=== PATIENT | male | born 1955 | race Caucasian/White ===

== ENCOUNTER 2016-07-26 18:12 | Emergency (ER) | payer OTHER ==
[~2016-07-26] VITALS: Ht 182.9 cm; Wt 80.7 kg
[~2016-07-26 18:12] MED LIST: ASPIR LOW81 MG PO; DAILY MULTIPLE1 TAB PO; GOOD SENSE IBU200 MG PO; NORVASC 5MG TAB5 MG PO; PRIMATENE 12.51 TAB PO
[2016-07-26] MEDS ORDERED: ASPIRIN EC325 M2 PO (20:12)
--- NOTE | 2016-07-26 20:12 | ED HEADACHE COMPLAINT ---
History of Present Illness General Chief Complaint: Dizziness Stated Complaint: DIZZINES,HIGH BP 230/170,GARVEY Source: patient, family, old records Exam Limitations: no limitations Vital Signs & Intake/Output Vital Signs & Intake/Output Vital Signs Date Time Temp Pulse Resp B/P Pulse O2 O2 Flow FiO2 Ox Delivery Rate 07/27 2111 98.3 64 18 178/96 94 Room Air 07/26 2028 100.6 92 20 190/101 07/26 2028 100.6 92 20 190/101 07/27 2019 96 07/26 191 Room Air 07/26 1909 190/101 07/26 183 100.6 92 20 222/123 91 Room Air Allergies Coded Allergies: Penicillins (Intermediate, HIVES 07/26/16) Sulfa (Sulfonamide Antibiotics) (Intermediate, FACIAL SWELLING 07/26/16) codeine (Intermediate, HIVES 07/26/16) Uncoded Allergies: BLUE CHEESE (Intermediate, HIVES 07/26/16) Reconcile Medications Amlodipine Besylate (Norvasc) 5 MG TABLET 1 TAB PO DAILY HTN Aspirin (Ecotrin*) 325 MG TABLET.DR 1 TAB PO DAILY HEART/BLOOD (Reported) Lisinopril 20 MG TABLET 1 TAB PO DAILY HTN Multivitamin (Multi-Day Vitamins) 1 EACH TABLET 1 TAB PO DAILY SUPPLEMENT ( Reported) Triage Note: TRIAGE: PT TO ER WITH C/C DIZZINESS, PAIN TO BACK OF NECK, BLURRED VISION EARLIER. REPORTS CHECKED HIS B/P BECAUSE OF S/S AND IT WAS 230/117 AT HOME. STATES NOW ONLY HAS S/S OF "A LITTLE BIT OF DIZZINESS". AUTO B/P 223/123, MANUAL 190/120 AT AT TRIAGE. Triage Nurses Notes Reviewed? yes HPI: 60-year-old male with history of hypertension and high cholesterol asthma, has not taken any blood pressure medication in 2-3 months to loss of insurance. He presents today with feeling mildly dizzy and headache. 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 Symptoms are mild to moderate, there is slightly better now than they were previously earlier in the day. He has no visual changes, no chest pain, NO abdominal pain or back pain, no visual changes no word finding problems. He has asthma and has mild wheezing and shortness of breath today. No cough or congestion (THEE LOPEZ,ARPAN) Past History Travel History Traveled to [place] past 21 day No Medical History Any Pertinent Medical History? 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 No (ARPAN PINK) Review of Systems Review of Systems Constitutional: Reports: see HPI. Eyes: Reports: no symptoms. Ears, Nose, Throat, Mouth: Reports: no symptoms. Respiratory: Reports: see HPI. Cardiovascular: Reports: no symptoms. Gastrointestinal/Abdominal: Reports: no symptoms. Genitourinary: Reports: no symptoms. Musculoskeletal: Reports: no symptoms. Skin: Reports: no symptoms. Neurological/Psychological: Reports: see HPI. Hematologic/Endocrine: Reports: no symptoms. Endocrine: Reports: no symptoms. Immunologic/Allergic: Reports: no symptoms. All Other Systems: Reviewed and Negative (ARPAN PINK) Physical Exam Physical Exam Cranial Nerves: normal hearing, normal speech, PERRL Comments: Well-developed well-nourished person in no acute distress HEENT: Normal EENT exam, extraocular motion intact, no nystagmus. Pupils equally round and reactive to light. Nose is atraumatic. Pharynx normal. No swelling or edema. Neck: Supple, no lymphadenopathy, normal range of motion without pain or tenderness Back: Nontender, no CVA tenderness. Full range of motion Cardiovascular: Regular rate and rhythms no murmurs, normal JVP Respiratory: Chest nontender. No respiratory distress. Mild wheezing and decreased breath sounds noted bilaterally. Abdomen: Soft, nontender nondistended, no appreciable organomegaly. Normal bowel sounds. No ascites Extremity: No edema, no calf tenderness to palpation, normal and equal pulses. Neuro: Alert oriented x3, motor sensory normal, cranial nerves II through XII grossly intact. Skin: No appreciable rash on exposed skin, skin is warm and dry. Psych: Mood and affect is normal, memory and judgment is normal. Core Measures Severe Sepsis Present: No Septic Shock Present: No (ARPAN PINK) Progress Differential Diagnosis: carotid dissection, cav sinus thromb, cluster GARVEY, encephalitis, IC mass/tumor, intracranial Hem., meningitis, migraine GARVEY, musculoskeletal pain, post LP headache, sinusitis, SSS thrombosis, subarach. Hem., tension GARVEY, temporal arteritis, TMJ syndrome, viral cephalgia Plan of Care: Orders Procedure Date/time Status TROPONIN LEVEL 07/26 1936 Complete MAGNESIUM 07/26 1936 Complete COMPREHENSIVE METABOLIC PANEL 07/26 1936 Complete CBC WITHOUT DIFFERENTIAL 07/26 1936 Complete EKG 07/26 1936 Active Laboratory Tests 07/26/161954: Anion Gap 6, Estimated GFR > 60, BUN/Creatinine Ratio 18.8, Glucose 129 H, Calcium 9.4, Magnesium 1.6, Total Bilirubin 0.4, AST 19, ALT 25, Alkaline Phosphatase 48, Troponin I 0.04, Total Protein 6.1 L, Albumin 3.5, Globulin 2.6 , Albumin/Globulin Ratio 1.3, CBC w Diff NO MAN DIFF REQ, RBC 4.20 L, MCV 97.1 H, MCH 32.6 H, RDW 13.9, MPV 9.4, Gran % 69.2, Lymphocytes % 20.2 L, Monocytes % 9.1, Eosinophils % 1.2, Basophils % 0.3, Absolute Granulocytes 6.5, Absolute Lymphocytes 1.9, Absolute Monocytes 0.9 H, Absolute Eosinophils 0.1, Absolute Basophils 0, PUBS MCHC 33.5 Initial ED EKG: NSR, rate (77), nonspecific ST T wave chg Prior EKG: unchanged Rhythm Strip: normal sinus rhythm Comments: DuoNeb treatment given. The patient treated with Norvasc 5 mg and lisinopril 20 mg which he believes was his previous medications. He was reevaluated and his lung sound much more clear, he is feeling better in regards to his asthma. His headache has resolved as well. His blood pressure has come down slightly. His laboratory values are unremarkable, no creatinine elevation. Patient was counseled to the risks of untreated hypertension including ID and stroke. He was advised follow-up with primary care doctor within one month (ARPAN PINK) Departure Departure Disposition: HOME OR SELF CARE Condition: Stable Clinical Impression Primary Impression: Hypertensive urgency Secondary Impressions: Asthma exacerbation Referrals: [facility] ASHLEY SHAFFER,RICHI (PCP/Family) Additional Instructions: Take medication as directed for your blood pressure. Follow up with your primary care doctor for recheck within the next month Departure Forms: Customer Survey General Discharge Information Prescriptions: Current Visit Scripts Lisinopril 1 TAB PO DAILY #30 TAB Amlodipine Besylate (Norvasc) 1 TAB PO DAILY #30 TAB (ARPAN PINK) PA/DRYWALL PROFESSIONAL Co-Sign Statement Statement: ED Attending supervision documentation- x I saw and evaluated the patient. I have also reviewed all the pertinent lab results and diagnostic results. I agree with the findings and the plan of care as documented in the PA's/DRYWALL PROFESSIONAL's documentation. [] I have reviewed the ED Record and agree with the PA's/DRYWALL PROFESSIONAL's documentation. [] Additions or exceptions (if any) to the PAs/DRYWALL PROFESSIONAL's note and plan are summarized below: [] (ELIZABETH SHAFFER,YOSELIN)
[2016-07-26] MEDS ORDERED: MULTI-DAY VITA1 EACH PO (20:13)
[2016-07-26 20:19] LABS: ABSOLUTE BASOPHIL COUNT 0 /CUMM (0.0-0.2); ABSOLUTE EOSINOPHIL COUNT 0.1 /CUMM (0.0-0.7); ABSOLUTE GRANULOCYTE CT 6.5 /CUMM (1.4-6.5); ABSOLUTE LYMPH COUNT 1.9 /CUMM (1.2-3.4); ABSOLUTE MONOCYTE COUNT 0.9 /CUMM (0.10-0.60); BASOPHIL % 0.3 % (0.0-2.0); EOSINOPHIL % 1.2 % (0-5); GRANULOCYTE % 69.2 % (42.2-75.2); HEMATOCRIT 40.8 % (42-52); MEAN CORPUSCULAR HGB 32.6 PG (27.0-31.0); MEAN CORPUSCULAR HGB CONC 33.5 G/DL (33.0-37.0); MEAN CORPUSCULAR VOLUME 97.1 FL (80.0-94.0); MEAN PLATELET VOLUME 9.4 FL (7.4-10.4); PLATELET COUNT 200 /CUMM (130-400); RBC DISTRIBUTION WIDTH 13.9 % (11.5-14.5); WHITE BLOOD CELL COUNT 9.4 /CUMM (4.8-10.8)
[2016-07-26] MEDS ORDERED: LISINOPRIL20 M1 PO (21:07)
[2016-07-26] MEDS ORDERED: NORVASC5 M1 PO (21:07)
[2016-07-26 21:12] VITALS: BP 178/96
== END 2016-07-26 21:26 ==
LOC: ERH 18:12
PROVIDERS: Physician Assistant Surgical
DX: I10 Essential (primary) hypertension (principal)
CPT/HCPCS: 1263; 93005; 93010

== ENCOUNTER 2017-09-26 17:18 | Inpatient (IN) | payer OTHER ==
[~2017-09-26] VITALS: Ht 182.9 cm; Wt 91.2 kg
[~2017-09-26 17:18] MED LIST changes: +ASPIRIN EC325 M2 PO; +LISINOPRIL20 M1 PO; +MULTI-DAY VITA1 EACH PO; +NORVASC5 M1 PO
--- NOTE | 2017-09-26 18:04 | ED DYSPNEA/ASTHMA COMPLAINT ---
History of Present Illness General Chief Complaint: Lower Extremity Problems Stated Complaint: LOWER LEG SWELLING Source: patient Exam Limitations: no limitations Vital Signs & Intake/Output Vital Signs & Intake/Output Vital Signs Date Time Temp Pulse Resp B/P B/P Pulse O2 O2 Flow FiO2 Mean Ox Delivery Rate 10/02 1600 Nasal 4.0L Cannula 10/02 1423 97.8 87 20 122/78 95 Nasal 4.0L Cannula 10/02 1423 94 Nasal 4.0L Cannula 10/02 0927 94 Nasal 4.0L Cannula 10/02 0838 93 Nasal 4.0L Cannula 10/02 0812 158/86 10/02 0702 98.0 89 20 166/100 95 Nasal 4.0L Cannula 10/02 0302 90 170/110 10/02 0225 170/110 10/02 0000 Nasal 5.0L Cannula 10/01 2316 97.8 87 20 150/104 97 Nasal 4.0L Cannula 10/01 2152 97 Nasal 4.0L Cannula ED Intake and Output 10/02 0000 10/01 1200 Intake Total 1465 380 Output Total 4075 2400 Balance -2610 -2020 Intake, IV 25 Intake, Oral 1440 380 Output, Urine 4075 2400 Patient 207 lb Weight Allergies Coded Allergies: Penicillins (Intermediate, HIVES 07/26/16) Sulfa (Sulfonamide Antibiotics) (Intermediate, FACIAL SWELLING 07/26/16) codeine (Intermediate, HIVES 07/26/16) Reconcile Medications Amlodipine Besylate (Norvasc) 5 MG TABLET 1 TAB PO DAILY HTN Aspirin (Ecotrin*) 325 MG TABLET.DR 1 TAB PO DAILY HEART/BLOOD (Reported) Lisinopril 20 MG TABLET 1 TAB PO DAILY HTN Multivitamin (Multi-Day Vitamins) 1 EACH TABLET 1 TAB PO DAILY SUPPLEMENT ( Reported) Triage Note: PT TO ED WITH WORSENING BLE EDEMA, DYSPNEA ON EXERTION. WHEEZES AT TRIAGE. 02 SAT 86% RA. Triage Nurses Notes Reviewed? yes Onset: Abrupt Duration: day(s):, constant Timing: recent history Severity: moderate, severe HPI: 62-year-old male comes into the emergency room for further evaluation of shortness of breath and leg swelling. Patient is a former smoker. He does not go to the doctor's. He has not been on any medication in quite a long time. He comes in due to increased swelling in his legs. Denies any fever chills vomiting chest pain. (Scot Strauss) Past History Travel History Traveled to [place] past 21 day No Medical History Any Pertinent Medical History? see below for history Neurological: NONE EENT: NONE Cardiovascular: hypertension Respiratory: asthma Gastrointestinal: NONE Hepatic: NONE Renal: NONE Musculoskeletal: L LEG FX BULGING DISKS PROTRUDING DISKS DETERIORATING DISKS Psychiatric: STRESS Endocrine: NONE Blood Disorders: NONE Cancer(s): NONE FOREPART ROUNDER/Reproductive: NONE Surgical History Surgical History: non-contributory Psychosocial History What is your primary language Polish Tobacco Use: Quit >30 days ago Family History Hx Contributory? No (Scot Strauss) Review of Systems Review of Systems Constitutional: Reports: no symptoms. EENTM: Reports: no symptoms. Respiratory: Reports: see HPI. Cardiovascular: Reports: no symptoms. GI: Reports: no symptoms. Genitourinary: Reports: no symptoms. Musculoskeletal: Reports: see HPI. Skin: Reports: no symptoms. Neurological/Psychological: Reports: no symptoms. Hematologic/Endocrine: Reports: no symptoms. Immunologic/Allergic: Reports: no symptoms. All Other Systems: Reviewed and Negative (Scot Strauss) Physical Exam Physical Exam General Appearance: well developed/nourished, alert, awake Head: atraumatic Eyes: Bilateral: normal appearance, EOMI. Ears, Nose, Throat: normal ENT inspection, hearing grossly normal Neck: normal inspection Respiratory: no respiratory distress, decreased breath sounds, rhonchi, wheezing Cardiovascular: regular rate/rhythm Gastrointestinal: soft Extremities: pedal edema Neurologic/Psych: awake, alert, oriented x 3 Skin: intact, normal color Core Measures ACS in differential dx? Yes CVA/TIA Diagnosis No Sepsis Present: No Sepsis Focused Exam Completed? No (Scot Strauss) Progress Differential Diagnosis: asthma, bronchitis, costochondritis, CHF, COPD, musculoskeletal pain, pericarditis, pulmonary embolism, pneumonia, pneumothorax, unstable angina Plan of Care: Orders Procedure Date/time Status MAGNESIUM 10/03 06 Active BASIC ELECTROLYTES PLUS BUN&CR 10/03 06 Active Anticipated Discharge 10/03 UNK Active PULMONARY FUNCTION TEST (GEN) 10/02 1000 Complete RT RE-EVALUATION 10/02 UNK Complete OXYGEN SETUP (GEN) 10/02 UNK Complete Discontinue Telemetry/Monitor 10/02 UNK Active SOCIAL WORK CONSULT 10/02 UNK Active AEROSOL CHG 10/01 UNK Complete OXYGEN 10/01 UNK Complete OXYGEN DAILY CHARGE 10/01 UNK Complete Current Medications Sig/Rene Start time Last Medication Dose Stop Time Status Admin Lisinopril 40 MG DAILY 10/02 0900 AC 10/02 (Prinivil) 0812 Prednisone 50 MG DAILY 10/02 0900 AC 10/02 0811 Ipratropium Nickerson 2.5 ML TID 10/01 2100 AC 10/02 (Atrovent) 1420 Amlodipine Besylate 10 MG DAILY 10/01 0900 AC 10/02 (Norvasc) 0302 Albuterol Sulfate 3 ML TID 09/29 1400 AC 10/02 (Proventil) 1420 Aspirin 81 MG DAILY 09/27 0900 AC 10/02 (Aspirin) 0812 Enoxaparin Sodium 40 MG DAILY 09/27 0900 AC 10/02 (Lovenox) 0811 Magnesium Oxide 400 MG BID 09/26 2345 AC 10/02 (Mag-Ox) 0811 Atorvastatin Calcium 40 MG 1700 09/26 2200 AC 10/02 (Lipitor) 1706 Acetaminophen 650 MG Q6P PRN 09/26 2145 AC 10/01 (Tylenol) 2219 Acetaminophen 1,000 MG Q6P PRN / 2145 AC (Ofirmev) Guaifenesin 10 ML Q4P PRN 09/26 2145 AC (Robitussin) Diagnostic Imaging: Viewed by Me: Radiology Read, Ultrasound. Discussed w/RAD: Radiology Read, Ultrasound. Radiology Impression: PATIENT: MAI ZUÑIGA PRESENT AGE: 62 PATIENT ACCOUNT NO: [id number] : 54 LOCATION: [facility] ORDERING PHYSICIAN: Lio LOPEZ SERVICE DATE: 09/26/17 EXAM TYPE: RAD - XRY-PORTABLE CHEST XRAY EXAMINATION: XR PORTABLE CHEST CLINICAL INFORMATION: Shortness of breath. COMPARISON: Chest radiograph 10/30/2008 TECHNIQUE: Portable frontal view of the chest was obtained. FINDINGS: There is a small right pleural effusion and bibasilar subsegmental atelectasis. The cardiac silhouette is enlarged and there is hilar vascular engorgement. The left lung is grossly clear. No pneumothorax. Upper mediastinal contours are unremarkable. No acute osseous finding. IMPRESSION: The heart is enlarged and there is hilar vascular engorgement. Small right pleural effusion and right basilar subsegmental atelectasis. The possibility of right basilar consolidation cannot be definitively excluded on the basis of this examination. DICTATED BY: Tyrone Garza MD DATE/TIME DICTATED:09/26/171855 BEAN PICKER MACHINE OPERATOR:[place] DATE /TIME TRANSCRIBED:09/26/171855 CONFIDENTIAL, DO NOT COPY WITHOUT APPROPRIATE AUTHORIZATION. <Electronically signed in Other Vendor System> SIGNED BY: Tyrone Garza MD 09/26/171902, PATIENT: MAI ZUÑIGA PRESENT AGE: 62 PATIENT ACCOUNT NO: [id number] : 54 LOCATION: [facility] ORDERING PHYSICIAN: Lio LOPEZ SERVICE DATE: 09/26/17 EXAM TYPE: US - US-EXT BILAT VENOUS DOPPLER EXAMINATION: US TRIPLEX OF LOWER EXTREMITIES, BILATERAL CLINICAL INFORMATION: Bilateral lower extremity edema and pain. COMPARISON: None TECHNIQUE: Color-flow triplex imaging with spectral analysis and compression Doppler were performed on the bilateral lower extremities. FINDINGS: Respiratory variation, normal compression and augmented flow are noted throughout the lower extremities. The visualized common femoral vein, superficial femoral vein, profunda femoral vein, popliteal vein and tibial peroneal trunk venous segments show no evidence of deep venous thrombosis. There is a left-sided Florian's cyst measuring 3.8 x 5.8 x 2 cm. IMPRESSION: Normal triplex scan without evidence of deep venous thrombosis involving the bilateral lower extremities. Left Florian's cyst. DICTATED BY: Carmelo Spann MD DATE/ TIME DICTATED:09/26/171929 BEAN PICKER MACHINE OPERATOR:[place] DATE/TIME TRANSCRIBED: 09/26/171929 CONFIDENTIAL, DO NOT COPY WITHOUT APPROPRIATE AUTHORIZATION. < Electronically signed in Other Vendor System> SIGNED BY: Carmelo Spann MD 09/26/171937 Initial ED EKG: normal sinus rhythm, rate (100), nonspecific ST T wave chg Comments: 09/26/2017 7:02:19 PM Age-adjusted d-dimer is negative (Scot Strauss) Departure Departure Disposition: STILL A PATIENT Condition: Stable Clinical Impression Primary Impression: Acute CHF (congestive heart failure) Secondary Impressions: COPD (chronic obstructive pulmonary disease), Hypoxia, Troponin level elevated Referrals: Coral Pulido MD (PCP/Family) Departure Forms: Customer Survey General Discharge Information Admission Note Spoke With: Roma Mendez MD Documentation of Exam: Documentation of any treatments & extenuating circumstances including Concerns Regarding Discharge (functional status, medication knowledge or non-compliance, living conditions, etc.) that warrant an admission rather than observation: Patient will require cardiac telemetry. Serial troponins. IV diuresis. IV steroids. BiPAP. Medically not safe for discharge. (Scot Strauss) PA/MANAGER TERMINAL Co-Sign Statement Statement: ED Attending supervision documentation- x I saw and evaluated the patient. I have also reviewed all the pertinent lab results and diagnostic results. I agree with the findings and the plan of care as documented in the PA's/MANAGER TERMINAL's documentation. Peripheral edema, dyspnea; CHF requiring oxygen and IV diuresis [] I have reviewed the ED Record and agree with the PA's/MANAGER TERMINAL's documentation. [] Additions or exceptions (if any) to the PAs/MANAGER TERMINAL's note and plan are summarized below: [] (Ruth SHAFFER,Derek) Critical Care Note Critical Care Note Critical Care Time: 30-74 min (45) (Scot Strauss)
[2017-09-26 18:58] LABS: ABSOLUTE BASOPHIL COUNT 0.1 /CUMM (0.0-0.2); ABSOLUTE EOSINOPHIL COUNT 0.2 /CUMM (0.0-0.7); ABSOLUTE GRANULOCYTE CT 7.1 /CUMM (1.4-6.5); ABSOLUTE LYMPH COUNT 1.1 /CUMM (1.2-3.4); BASOPHIL % 0.9 % (0.0-2.0); EOSINOPHIL % 1.7 % (0-5); GRANULOCYTE % 75.6 % (42.2-75.2); HEMATOCRIT 41.8 % (42-52); MEAN CORPUSCULAR HGB 31.5 PG (27.0-31.0); MEAN CORPUSCULAR HGB CONC 31.8 G/DL (33.0-37.0); MEAN CORPUSCULAR VOLUME 98.9 FL (80.0-94.0); MEAN PLATELET VOLUME 8.9 FL (7.4-10.4); PLATELET COUNT 222 /CUMM (130-400); RBC DISTRIBUTION WIDTH 16.4 % (11.5-14.5); RED BLOOD CELL CT 4.22 /CUMM (4.70-6.10); WHITE BLOOD CELL COUNT 9.4 /CUMM (4.8-10.8)
--- NOTE | 2017-09-26 19:03 | RADIOLOGY REPORT ---
EXAMINATION: XR PORTABLE CHEST CLINICAL INFORMATION: Shortness of breath. COMPARISON: Chest radiograph 10/30/2008 TECHNIQUE: Portable frontal view of the chest was obtained. FINDINGS: There is a small right pleural effusion and bibasilar subsegmental atelectasis. The cardiac silhouette is enlarged and there is hilar vascular engorgement. The left lung is grossly clear. No pneumothorax. Upper mediastinal contours are unremarkable. No acute osseous finding. IMPRESSION: The heart is enlarged and there is hilar vascular engorgement. Small right pleural effusion and right basilar subsegmental atelectasis. The possibility of right basilar consolidation cannot be definitively excluded on the basis of this examination.
--- NOTE | 2017-09-26 19:38 | ULTRASOUND REPORT ---
EXAMINATION: US TRIPLEX OF LOWER EXTREMITIES, BILATERAL CLINICAL INFORMATION: Bilateral lower extremity edema and pain. COMPARISON: None TECHNIQUE: Color-flow triplex imaging with spectral analysis and compression Doppler were performed on the bilateral lower extremities. FINDINGS: Respiratory variation, normal compression and augmented flow are noted throughout the lower extremities. The visualized common femoral vein, superficial femoral vein, profunda femoral vein, popliteal vein and tibial peroneal trunk venous segments show no evidence of deep venous thrombosis. There is a left-sided Florian's cyst measuring 3.8 x 5.8 x 2 cm. IMPRESSION: Normal triplex scan without evidence of deep venous thrombosis involving the bilateral lower extremities. Left Florian's cyst.
--- NOTE | 2017-09-26 21:43 | History & Physical ---
Zain Jimenez MD 09/26/177: General Information and HPI MD Statement: I have seen and personally examined MAI ZUÑIGA and documented this H&P. The patient is a 62 year old M who presented with a patient stated chief complaint of [bilateral lower extremity swelling and shortness of breath]. Source of Information: patient, family, old records Exam Limitations: no limitations History of Present Illness: The patient is a 62-year-old male with past medical history of hypertension, asthma, former smoker with [id number] history who has been noncompliant with medications and medical follow-up due to lack of insurance presenting this admission with chief complaint of shortness of breath and bilateral lower extremity swelling. Patient reports that she stopped taking his medications which included amlodipine 5 mg, aspirin, lisinopril 2-3 years ago after he lost his insurance and has been unable to follow-up with any of his doctors including his primary care physician at [facility]. Patient states that over the past one month he has had shortness of breath and lower extremity swelling. Patient and his son who lives with him reports that over the past one week his shortness of breath has progressively worsened and occurs with both exertion and at rest. Patient endorses that productive cough with greenish phlegm and wheezing. Patient reports orthopnea and paroxysmal nocturnal dyspnea. Patient reports weight gain of approximately 20-25 pounds. Endorses abdominal discomfort and reports increased abdominal girth. Patient denies chest pain, palpitations, chest pressure. Patient denies fever, chills, nausea/vomiting, constipation/diarrhea, urinary symptoms. Patient reports increased daytime somnolence and son reports that he often hears the patient snoring at night. Patient reports that he has been using his son's albuterol inhaler occasionally and has also been taking Primatene tablets and using a nebulizer machine at home for the asthma. Patient denies tobacco use. States that he quit smoking 10 years prior. Previously smoked 1 pack per day for approximately 40 years. Patient reports that he smokes marijuana daily. Patient is exposed to secondhand smoke as his son who lives with him smokes however states that he smokes with his bedroom door closed. 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 In the ED patient was found to be hypoxic in the low to mid 80s and was started on BiPAP. Patient was hypertensive and was given labetalol 10 mg IV 1 along with nitroglycerin 1 g 1. Patient was given a dose of Lasix 40 mg IV, Solu- Medrol 125 mg IV 1 and aspirin 325 mg. Allergies/Medications Allergies: Coded Allergies: Penicillins (Intermediate, HIVES 07/26/16) Sulfa (Sulfonamide Antibiotics) (Intermediate, FACIAL SWELLING 07/26/16) codeine (Intermediate, HIVES 07/26/16) Uncoded Allergies: BLUE CHEESE (Intermediate, HIVES 07/26/16) Home Med list Amlodipine Besylate (Norvasc) 5 MG TABLET 1 TAB PO DAILY HTN Aspirin (Ecotrin*) 325 MG TABLET.DR 1 TAB PO DAILY HEART/BLOOD (Reported) Lisinopril 20 MG TABLET 1 TAB PO DAILY HTN Multivitamin (Multi-Day Vitamins) 1 EACH TABLET 1 TAB PO DAILY SUPPLEMENT ( Reported) Past History Travel History Traveled to [place] past 21 day No Medical History Neurological: NONE EENT: NONE Cardiovascular: hypertension Respiratory: asthma Gastrointestinal: NONE Hepatic: NONE Renal: NONE Musculoskeletal: L LEG FX BULGING DISKS PROTRUDING DISKS DETERIORATING DISKS Psychiatric: STRESS Endocrine: NONE Blood Disorders: NONE Cancer(s): NONE INVESTMENT ANALYST/Reproductive: NONE Isolation History: Standard Surgical History Surgical History: non-contributory Review of Systems Review of Systems Constitutional: Reports: see HPI. EENTM: Reports: no symptoms. Cardiovascular: Reports: see HPI. Respiratory: Reports: see HPI. GI: Reports: see HPI. Genitourinary: Reports: no symptoms. Musculoskeletal: Reports: no symptoms. Skin: Reports: no symptoms. Neurological/Psychological: Reports: no symptoms. Hematologic/Endocrine: Reports: no symptoms. Immunologic/Allergic: Reports: no symptoms. Exam & Diagnostic Data Last 24 Hrs of Vital Signs/I&O Vital Signs Date Time Temp Pulse Resp B/P B/P Pulse O2 O2 Flow FiO2 Mean Ox Delivery Rate 09/27 0000 92 90 09/26 2252 98.2 95 22 174/96 93 09/26 2135 97.8 92 18 160/100 93 Nasal 4.0L Cannula 09/26 2037 92 20 180/104 94 Nasal 4.0L Cannula 09/26 2030 83 96 09/26 2002 90 18 174/108 98 BIPAP 09/26 1937 92 18 184/100 09/26 1917 90 20 184/110 98 BIPAP 09/26 1820 98 09/26 1807 80 09/26 1739 98.4 99 18 169/108 84 Room Air Intake & Output 09/27 0800 09/27 0000 09/26 1600 Intake Total Output Total 1710 Balance -1710 Output, Urine 1710 Patient 235 lb Weight Weight Reported by Patient Measurement Method Physical Exam General Appearance Alert, Oriented X3, Cooperative, No Acute Distress Skin No Rashes Skin Temp/Moisture Exam: Warm/Dry HEENT Atraumatic, PERRLA, EOMI, Mucous Membr. moist/pink Neck mild JVD Cardiovascular Regular Rate, Normal S1, Normal S2 Lungs bilateral crackles and prolonged expiratory wheezing Abdomen Normal Bowel Sounds, Soft, No Tenderness Neurological Normal Speech, Sensation Intact, Cranial Nerves 3-12 NL Extremities No Clubbing, No Cyanosis, Normal Pulses, No Tenderness/Swelling, bilateral lower extremity pitting edema 3+ Vascular Normal Pulses, Pulses Symmetrical Last 24 Hrs of Labs/Ramon: Laboratory Tests 09/27/17 0045: Methadone Screen Pending, Barbiturate Screen Pending, Ur Phencyclidine Scrn Pending, Amphetamines Screen Pending, U Benzodiazepines Scrn Pending, Urine Cocaine Screen Pending, Urine Cannabis Screen Pending 09/27/17 0017: Troponin I Pending 09/26/17 1820: Anion Gap 6, Estimated GFR > 60, BUN/Creatinine Ratio 20.0, Glucose 91, Hemoglobin A1c Pending, Calcium 8.7, Phosphorus 4.1, Magnesium 1.5 L, Total Bilirubin 0.5, AST 40, ALT 52, Alkaline Phosphatase 68, Troponin I 0.11 *H, Pro- B-Natriuretic Pept 3050 H, Total Protein 5.7 L, Albumin 3.0 L, Globulin 2.7, Albumin/Globulin Ratio 1.1, Vitamin B12 > 1000 H, Folate > 20.0 H, TSH 2.200, Free T4 1.45, D-Dimer High Sensitivty 246 H, CBC w Diff NO MAN DIFF REQ, RBC 4.22 L, MCV 98.9 H, MCH 31.5 H, MCHC 31.8 L, RDW 16.4 H, MPV 8.9, Gran % 75.6 H, Lymphocytes % 11.7 L, Monocytes % 10.1 H, Eosinophils % 1.7, Basophils % 0.9, Absolute Granulocytes 7.1 H, Absolute Lymphocytes 1.1 L, Absolute Monocytes 1.0 H, Absolute Eosinophils 0.2, Absolute Basophils 0.1 09/26/17 1800: pH 7.35, pCO2 66 *H, pO2 42 *L, HCO3 35 H, ABG O2 Sat (Measured) 75.0 L, Carboxyhemoglobin 4.4, O2 Concentration % 21, O2 Delivery Method RA, Phlebotomy Draw Site RIGHT RADIAL Microbiology 09/27 0015 NASOPHARYN: Influenza Virus A & B Rapid Smear - COMP 09/26 2148 LOWER RESP: Respiratory Culture - ORD 09/26 2148 LOWER RESP: Gram Stain - ORD Assessment/Plan Assessment: The patient is a 62-year-old male with past medical history of hypertension, asthma, former smoker with [id number] history who has been noncompliant with medications and medical follow-up due to lack of insurance presenting this admission with chief complaint of shortness of breath and bilateral lower extremity swelling. Patient will be admitted to telemetry for management of the followin. Acute decompensated congestive heart failure 2. Asthma/COPD exacerbation 3. Acute hypoxic respiratory failure 2/2 to above 4. Hypertensive urgency 5. Elevated troponin with nonspecific EKG changes 6. Likely obstructive sleep apnea Plan: Admit to telemetry Continuous telemetry monitoring Serial EKG and troponin Cardiology consult in AM ECHO TRC/Lacey Follow up sputum culture, legionella, strep, rapid flu Robitussin PRN for cough Continue BIPAP and wean off as tolerated Pulmonology consult in AM Monitor vitals Lasix 40mg IV BID Solu-medrol IV 40mg q8h Lisinopril 20mg daily Check TSH, lipid, Hemoglobin A1c Monitor CBC and electrolytes Diet: Heart healthy Code: Full code DVT PPx: As Ranked By This Provider Problem List: 1. Hypertensive urgency 2. Acute CHF (congestive heart failure) 3. Asthma exacerbation 4. COPD (chronic obstructive pulmonary disease) 5. Troponin level elevated 6. Hypoxia Core Measures/Misc (02/10) Acute Coronary Syndrome ACS Diagnosis: No Congestive Heart Failure Congestive Heart Failure Diagnosis Yes Cerebrovascular Accident CVA/TIA Diagnosis: No VTE (View Protocol) VTE Risk Factors Age>40 No Mechanical VTE Prophylaxis d/t N/A MechProphylax Ordered No VTE Pharm Prophylaxis d/t NA PharmProphylax ordered Sepsis (View protocol) Sepsis Present: No Veto Zimmer 05/03/18 2146: Resident Review Statement Resident Statement: examined this patient, discussed with consumer insights intern, agreed with consumer insights intern, discussed with family, reviewed EMR data (avail), discussed with nursing , discussed with case mgmt, reviewed images, amended to note Other Findings: This is 62 year-old man with medical histroy of HTN, HLD, asthma/COPD, noncomplaince with his home medications for the past 1-2 years. He presented to the ED with c/o lower ext edema and SOB for the past 3-6 days. He stated that for the past month he started to feel SOB he should with exertion that currently progressed to be sometimes at rest, also he stated that the shortness of breath associated with expiratory wheezing on and off, he reports chronic protective cough greenish sputum, patient stated that he smoked marijuana 1-2 pre day to help with his legs pain, he also report that 4-6 days ago he start to notice lower ext edema that start around his ankle and progress to reach his private area, also he report weight gain around 25Ib within 4 month that is also associated with increase ABD size. According to his family the patient also snore at night and increased difficulty breathing when he sleeps that made him sometimes to bend over to culture his breathing also they noticed that he snore when he sleep in a fall asleep during the daytime. The patient stated that for the past 2 years he did not follow with any primary doctor due to insurance and finances issue and he stopped taking his blood pressure and high cholesterol medication due to that. On presentation to the emergency department his oxygen saturation dropped to 88% so ABG obtained and the patient was placed on BiPAP for 2 hours and also received 40 mg of IV Lasix, 125 mg of IV Solu-Medrol, and due to his high blood pressure patient received 10 mg of IV labetalol and the nitroglycerin patch was placed. Patient has elevated troponin of 0.11 with non- specific EKG changes, chest x-ray showed vascular engorgement with cardiomegaly. Patient deny any chest pain, fever, chills, heart tracing. Physical examination, lab and imaging as above. Problem list: -COPD/asthma exacerbation -Newly diagnosed CHF -Hypertension urgency -Elevated troponin -Obstructive sleep apnea Plan: -Admit patient to telemetry -vitals every shift, monitor I&Os -Start IV Lasix 40 mg twice a day -Serial troponin and EKG -Obtain echocardiogram -Obtain TSH free T4, magnesium level, lipid panel, HA1c -Cardiology consultation in a.m. -Start atorvastatin 40 mg by mouth daily -Start lisinopril 20 mg by mouth daily -Consider Start labetalol to manage blood pressure goal for the first 24 hour between 150 and 160 systolic. -IV Solu-Medrol 40 mg every 8 -TRC nebs as needed -Obtain rapid flu, sputum culture -Consider Pulmonary consultation in a.m. -Patient will need sleep study as an outpatient -Heart healthy diet -Pain pathway -DVT prophylaxis subcutaneous Lovenox -Full code Andrea SHAFFER, [facility] 09/26/17 2146: Attending MD Review Statement Attending Statement Attending MD Statement: examined this patient, discuss w/resident/PA/FURNITURE SPRAYER, agreed w/resident/PA/FURNITURE SPRAYER, discussed with family, reviewed images, amended to note Attending Assessment/Plan: 62 yo obese M with h/o HTN, HLD, asthma/ ?COPD who is noncompliant with medications and has not seen a physician for over 2 yrs, is here for worsening exertional dyspnea over past one month, now also occuring at rest since past 1 week. This is associated with increasing lower extremity edema extending to lower abdomen, and weight gain of 25 lbs in 5 months. He is an ex-smoker and reports chronic cough. He was seen in the ER in 2017, was prescribed lisinopril and amlodipine but patient did not take it due to insurance issues. She smokes marijuana and also eats a lot of junk food. Vitals: afebrile, HR 90's, BP 184/110 --> 160/100 --> 174/96, sats 84% RA --> placed on Bipap and subsequently 93% on 4L. Exam: AAO in mild respiratory distress, mucosa moist, JVD+, Chest bibasilar crackles with diffuse expiratory wheeze++, Abd soft, obese, LE: 3++ pitting edema. Labs: macrocytic anemia, H/H 13.3/41.8, bicarb 38, Mag 1.5, LFT normal, troponin 0.11, proBNP 3050, thyroid functions normal, Utox positive for marijuana. AB.35/66/42/35. LE doppler: no DVT. CXR: Heart is enlarged, hilar vascular engorgement, right pleural effusion, right basilar atelectasis. EKG: sinus tachycardia, incomplete RBBB, LAFB, nonspecific T wave changes, Qtc 449. Patient was placed on Bipap upon ER arrival, received IV lasix, solumedrol, labetalol and nitropaste with good effect. Patient diuresed about 2-3 L in ER. Assessment and plan: 1. Acute hypoxemic respiratory failure 2. Acute decompensated heart failure (systolic vs diastolic) 3. Chronic compensated respiratory acidosis 4. Asthma/ COPD exacerbation 5. Hypertensive emergency 6. Elevated troponin likely demand ischemia 7. Medication noncompliance 8. Chronc marijuana user - Admit to Telemetry - Strict I/O's - Daily weights - IV lasix 40 BID - Serial EKG and troponin - Obtain echocardiogram - Cardio consult - Check lipid panel, HbA1c - Continue aspirin, high dose statin, nitropaste, IV morphine as needed - BP management with lisinopril then uptitrate - TRC nebs - Sputum culture - O2 supplementation - IV solumedrol 40 Q8 - Outpatient PFT and pulm consult - Counseling about marijuana use DVT ppx Lovenox. Full code.
--- NOTE | 2017-09-26 21:46 | Admission Certification ---
Admission Certification Certification Statement - As attending physician, I certify that at the time of - admission, based on clinical presentation, severity of - symptoms, need for further diagnostic testing and - therapeutic interventions, and risk of adverse outcomes - without in-hospital treatment, in my clinical assessment, - this patient requires an acute hospital stay for a minimum - of two nights or longer. I have also considered psychsocial - factors such as support system, advanced age, financial - issues, cognitive issues, and failed out-patient treatments, - past re-admission history, safety of patient, and lack of - compliance as applicable. Specific rationale supporting this admission is: Acute hypoxemic respiratory failure, acute onset congestive heart failure and asthma/COPD exacerbation with elevated troponin likely demand ischemia. Hypertensive emergency.
[2017-09-26 22:52] VITALS: BP 174/96
[2017-09-27 06:05] VITALS: BP 162/100
[2017-09-27 08:14] LABS: ABSOLUTE BASOPHIL COUNT 0 /CUMM (0.0-0.2); ABSOLUTE EOSINOPHIL COUNT 0 /CUMM (0.0-0.7); ABSOLUTE GRANULOCYTE CT 3.7 /CUMM (1.4-6.5); ABSOLUTE LYMPH COUNT 0.3 /CUMM (1.2-3.4); ABSOLUTE MONOCYTE COUNT 0.2 /CUMM (0.10-0.60); BASOPHIL % 0.2 % (0.0-2.0); EOSINOPHIL % 0.1 % (0-5); HEMATOCRIT 39.9 % (42-52); MEAN CORPUSCULAR HGB 31.4 PG (27.0-31.0); MEAN CORPUSCULAR HGB CONC 32.1 G/DL (33.0-37.0); MEAN CORPUSCULAR VOLUME 97.8 FL (80.0-94.0); MEAN PLATELET VOLUME 9.3 FL (7.4-10.4); RBC DISTRIBUTION WIDTH 16.6 % (11.5-14.5); RED BLOOD CELL CT 4.08 /CUMM (4.70-6.10)
--- NOTE | 2017-09-27 08:27 | PN- Housestaff ---
Joshua SHAFFER,Yordy 09/27/17 0827: Subjective Follow-up For: Decompensated heart failure Hypertensive urgency Tele-Events Since Last Visit: Sinus rhythm HR 80s90 Subjective: Patient was seen and examined at bedside. He was resting comfortably. He had no acute events overnight. He is eager to be discharged, despite being told that he would need to be in the hospital for at least 1 more day. He reports significant improvement of his lower extremity, abdominal, and scrotal swelling. He also reports improvement of shortness of breath. He denies any chest pain, palpitations, nausea, vomiting, fever, chills. Review of Systems Constitutional: Denies: chills, malaise. Cardiovascular: Reports: see HPI, peripheral edema. Respiratory: Reports: no symptoms. Gastrointestinal: Reports: no symptoms. Genitourinary: Reports: no symptoms. Musculoskeletal: Reports: no symptoms. Skin: Reports: no symptoms. Objective Last 24 Hrs of Vital Signs/I&O Vital Signs Date Time Temp Pulse Resp B/P B/P Pulse O2 O2 Flow FiO2 Mean Ox Delivery Rate 09/27 06 98.1 81 20 162/100 93 Nasal Cannula 09/27 0000 92 90 09/26 2252 98.2 95 22 174/96 93 09/26 2135 97.8 92 18 160/100 93 Nasal 4.0L Cannula 09/26 2038 92 20 180/104 94 Nasal 4.0L Cannula 09/26 2030 83 96 / 2003 90 18 174/108 98 BIPAP 09/26 1937 92 18 184/100 09/26 1918 90 20 184/110 98 BIPAP 09/26 1820 98 09/26 1807 80 09/26 1739 98.4 99 18 169/108 84 Room Air Intake & Output 09/27 1600 09/27 0800 09/27 0000 Intake Total Output Total 200 1710 Balance -200 -1710 Output, Urine 200 1710 Patient 235 lb Weight Weight Reported by Patient Measurement Method Physical Exam General Appearance: Alert, Oriented X3, Cooperative, No Acute Distress Cardiovascular: Regular Rate, Normal S1, Normal S2, systolic murmur Lungs: scant rhonchi with mild wheezing Abdomen: Normal Bowel Sounds, Soft, No Tenderness Neurological: Normal Speech, Sensation Intact Extremities: 2+ pitting edema of the bilateral lower extremities Current Medications: Current Medications Sig/Rene Start time Last Medication Dose Route Stop Time Status Admin Acetaminophen 650 MG Q6P PRN 09/26 2144 AC PO Acetaminophen 1,000 MG Q6P PRN 09/26 2144 AC IV Albuterol Sulfate 3 ML BID 09/27 899 AC 09/27 INH 0819 Albuterol Sulfate 3 ML ONCE ONE 09/26 1800 DC 09/26 INH 09/26 1801 1806 Aspirin 81 MG DAILY 09/27 899 AC PO Aspirin 0 .STK-MED ONE 09/26 194 DC PO Aspirin 325 MG ONCE ONE 09/26 193 DC 09/26 PO 09/26 1931 1937 Atorvastatin Calcium 40 MG 1700 09/26 2200 AC 09/27 PO 0010 Enoxaparin Sodium 40 MG DAILY 09/27 899 AC SC Furosemide 40 MG 7:30 AM, & 4:30 PM 09/27 729 AC IV Furosemide 0 .STK-MED ONE 09/26 181 DC IV Furosemide 40 MG ONCE ONE 09/26 1800 DC 09/26 IV 09/26 1801 1831 Guaifenesin 10 ML Q4P PRN 09/26 2144 AC PO Ipratropium Jackson 2.5 ML ONCE ONE 09/26 1800 DC 09/26 INH 09/26 1801 1806 Labetalol HCl 10 MG ONCE ONE 09/26 194 DC 09/26 IV 09/26 194 1937 Labetalol HCl 0 .STK-MED ONE 09/27 1939 DC IV Lisinopril 20 MG DAILY 09/27 899 AC PO Magnesium Oxide 400 MG .STK-MED ONE 09/27 0008 DC PO 09/27 0009 Magnesium Oxide 400 MG BID 09/26 2345 AC 09/27 PO 0011 Magnesium Sulfate 1 GM ONCE ONE 09/27 0130 CAN Dextrose/Water 100 ML IV 09/27 05 Methylprednisolone 40 MG Q8 09/27 06 AC 09/27 IV 0635 Methylprednisolone 0 .STK-MED ONE 09/26 181 DC .ROUTE Methylprednisolone 125 MG ONCE ONE 09/26 1800 DC 09/26 IV 09/26 1801 1831 Nitroglycerin 0 .STK-MED ONE 09/26 2005 DC TOP Nitroglycerin 1 GM ONCE ONE 09/26 2000 DC 05 TOP 09/26 Last 24 Hrs of Lab/Ramon Results Last 24 Hrs of Labs/Mics: Laboratory Tests 09/27/17 1200: Troponin I Cancelled 09/27/17 0620: Anion Gap 6, Estimated GFR > 60, BUN/Creatinine Ratio 24.4, Magnesium 1.5 L, Troponin I 0.11 *H, Triglycerides 63, Cholesterol 148, LDL Cholesterol, Calc 89, HDL Cholesterol 47, Cholesterol/HDL Ratio 3, CBC w Diff NO MAN DIFF REQ, RBC 4.08 L, MCV 97.8 H, MCH 31.4 H, MCHC 32.1 L, RDW 16.6 H, MPV 9.3, Gran % 87.2 H, Lymphocytes % 7.3 L, Monocytes % 5.2, Eosinophils % 0.1, Basophils % 0.2, Absolute Granulocytes 3.7, Absolute Lymphocytes 0.3 L, Absolute Monocytes 0.2, Absolute Eosinophils 0, Absolute Basophils 0 09/27/17 0045: Urine Opiates Screen < 100, Methadone Screen < 40, Barbiturate Screen < 60, Ur Phencyclidine Scrn < 6.00, Amphetamines Screen < 100, U Benzodiazepines Scrn < 85, Urine Cocaine Screen < 50, Urine Cannabis Screen > 80.00 H 09/27/17 0017: Troponin I 0.10 Microbiology 09/27 14 NASOPHARYN: Influenza Virus A & B Rapid Smear - COMP 09/26 2148 LOWER RESP: Respiratory Culture - CAN Cancelled: SPECIMEN NOT RECEIVED IN LABORATORY 09/26 2148 LOWER RESP: Gram Stain - CAN Cancelled: SPECIMEN NOT RECEIVED IN LABORATORY Assessment/Plan Assessment: Patient is a 59-year-old male with a PMH significant for HTN, asthma, COPD, significant smoking history who presented complaining of lower extremity swelling and shortness of breath. #Acute hypoxic respiratory failure Likely multifactorial with COPD exacerbation and decompensated heart failure -Follow-up echocardiogram -Continue IV Lasix -Continue TRC/nebs -Taper supplemental O2 as tolerated -Mild elevation in troponin, has remained stable over 3 successive readings with an enlarging EKG shows no significant ST-T changes #Hypertension -Continue lisinopril 20 mg -Patient remains mildly hypertensive, continue to monitor and increase lisinopril dose or add carvedilol tomorrow if BP remains uncontrolled Diet: Heart healthy DVT prophylaxis: Lovenox, Alps CODE STATUS: Full code Problem List: 1. COPD (chronic obstructive pulmonary disease) 2. Hypoxia 3. Acute CHF (congestive heart failure) Pain Ratin Pain Location: none Pain Goal: Remain pain free Pain Plan: pain pathway Tomorrow's Labs & Rationales: cbc, bep Valery SHAFFERVivianifrah 09/27/17 1210: Attending MD Review Statement Attending Statement Attending MD Statement: examined this patient, discuss w/resident/PA/MANAGER AGENCY, agreed w/resident/PA/MANAGER AGENCY, reviewed EMR data (avail) Attending Assessment/Plan: 62M PMH HTN, HLD, COPD admitted with a month of exertional dyspnea now with shortness of breath at rest, found to be fluid overloaded with weakly positive troponin, started on Lasix and Solumedrol overnight with significant diuresis and clinical improvement. Patient is comfortable right now, not short of breath, no complaints. EKG NSR, no telemetry events, troponin steady at 0.11. 1. Acute on chronic systolic CHF 2. Dyspnea at rest 3. Type 2 myocardial infarction Plan - Continue on telemetry - Continue Lasix, monitor I/O, daily weights - Continue to trend troponin until decrease is noted - Follow cardiology recommendations - Continue home medications - DVT PPx - Anticipated discharge possibly Saturday if continues to improve clinically with outpatient cardiology follow up
[2017-09-27 08:37] LABS: WHITE BLOOD CELL COUNT 4.3 /CUMM (4.8-10.8)
[2017-09-27 08:38] LABS: GRANULOCYTE % 87.2 % (42.2-75.2); PLATELET COUNT 200 /CUMM (130-400)
[2017-09-27 09:27] VITALS: BP 140/90
--- NOTE | 2017-09-27 11:59 | Cons- Cardiology ---
General Information and HPI Consulting Request Date of Consult: 09/27/17 Requested By: Jami Rasmussen MD Reason for Consult: Uncontrolled hypertension and congestive heart failure Source of Information: patient, family Exam Limitations: no limitations History of Present Illness: The patient is a 62-year-old male. He is known to me from prior office visits. He has not been in the office for 2-1/2 years due to insurance related issues. His past medical history is remarkable for hypertension, asthma, tobacco use, etc. Patient now presents the emergency room with weight gain, shortness of breath, lower extremity edema and uncontrolled hypertension. Previously, the patient was on amlodipine 5 mg daily and lisinopril for blood pressure control. He has not however taken his medications for more than 2 years. According to the patient and his family, the weight gain and shortness of breath as well as edema have been worsening over the last month or so. He denies any chest discomfort or other cardiac symptoms at the present time. Since admission , he is diuresed about 3 L and is feeling somewhat better. He is currently back on lisinopril and his blood pressure is better controlled though not optimal. Allergies/Medications Allergies: Coded Allergies: Penicillins (Intermediate, HIVES 07/26/16) Sulfa (Sulfonamide Antibiotics) (Intermediate, FACIAL SWELLING 07/26/16) codeine (Intermediate, HIVES 07/26/16) Uncoded Allergies: BLUE CHEESE (Intermediate, HIVES 07/26/16) Home Med List: Amlodipine Besylate (Norvasc) 5 MG TABLET 1 TAB PO DAILY HTN Aspirin (Ecotrin*) 325 MG TABLET.DR 1 TAB PO DAILY HEART/BLOOD (Reported) Lisinopril 20 MG TABLET 1 TAB PO DAILY HTN Multivitamin (Multi-Day Vitamins) 1 EACH TABLET 1 TAB PO DAILY SUPPLEMENT ( Reported) Current Medications: Current Medications Sig/Rene Start time Last Medication Dose Route Stop Time Status Admin Acetaminophen 650 MG Q6P PRN 09/26 2144 AC PO Acetaminophen 1,000 MG Q6P PRN 09/26 2144 AC IV Albuterol Sulfate 3 ML BID 09/27 899 AC 09/27 INH 0819 Albuterol Sulfate 3 ML ONCE ONE 09/26 1800 DC 09/26 INH 09/26 1801 1806 Aspirin 81 MG DAILY 09/27 899 AC 09/27 PO 0927 Aspirin 0 .STK-MED ONE 09/26 194 DC PO Aspirin 325 MG ONCE ONE 09/26 1930 DC 09/26 PO 09/26 193 193 Atorvastatin Calcium 40 MG 1700 09/26 2200 AC 09/27 PO 0010 Enoxaparin Sodium 40 MG DAILY 09/27 09 AC 09/27 SC 0927 Furosemide 40 MG 7:30 AM, & 4:30 PM 09/27 0730 AC 09/27 IV 0927 Furosemide 0 .STK-MED ONE 09/26 181 DC IV Furosemide 40 MG ONCE ONE 09/26 1800 DC 09/26 IV 09/26 1801 1831 Guaifenesin 10 ML Q4P PRN 09/26 214 AC PO Ipratropium [place] 2.5 ML ONCE ONE 09/26 1800 DC 09/26 INH 09/26 1801 1806 Labetalol HCl 10 MG ONCE ONE 09/26 194 DC 09/26 IV 09/26 194 193 Labetalol HCl 0 .STK-MED ONE 09/26 194 DC IV Lisinopril 20 MG DAILY 09/27 09 AC 09/27 PO 0927 Magnesium Oxide 400 MG .STK-MED ONE 09/27 0008 DC PO 09/27 0009 Magnesium Oxide 400 MG BID 09/26 2345 AC 09/27 PO 0927 Magnesium Sulfate 1 GM ONCE ONE 09/27 0130 CAN Dextrose/Water 100 ML IV 09/27 05 Methylprednisolone 40 MG Q8 09/27 06 AC 09/27 IV 0635 Methylprednisolone 0 .STK-MED ONE 09/26 181 DC .ROUTE Methylprednisolone 125 MG ONCE ONE 09/26 1800 DC 09/26 IV 09/26 1801 1831 Nitroglycerin 0 .STK-MED ONE 09/26 2005 DC TOP Nitroglycerin 1 GM ONCE ONE 09/26 2000 DC 09/26 TOP 09/26 Past History Travel History Traveled to [place] past 21 day No Medical History Neurological: NONE EENT: NONE Cardiovascular: hypertension Respiratory: asthma Gastrointestinal: NONE Hepatic: NONE Renal: NONE Musculoskeletal: L LEG FX BULGING DISKS PROTRUDING DISKS DETERIORATING DISKS Psychiatric: STRESS Endocrine: NONE Blood Disorders: NONE Cancer(s): NONE NEWS CORRESPONDENT/Reproductive: NONE Surgical History Surgical History: non-contributory Psychosocial History Where Do You Live? Home Services at Home: None Smoking Status: Former Smoker Exam & Diagnostic Data Vital Signs and I&O Vital Signs Date Time Temp Pulse Resp B/P B/P Pulse O2 O2 Flow FiO2 Mean Ox Delivery Rate 09/27 09 88 140/90 09/27 0927 88 140/90 09/27 0910 Nasal 4.0L Cannula 09/27 0848 93 Nasal 4.0L Cannula 09/27 0848 93 09/27 0800 Nasal 4.0L Cannula 09/27 0605 98.1 81 20 162/100 93 Nasal Cannula 09/27 0000 92 90 05/ 2252 98.2 95 22 174/96 93 05 2135 97.8 92 18 160/100 93 Nasal 4.0L Cannula 09/26 2038 92 20 180/104 94 Nasal 4.0L Cannula 09/26 2030 83 96 05 2003 90 18 174/108 98 BIPAP 09/26 1937 92 18 184/100 05 1918 90 20 184/110 98 BIPAP 09/26 1820 98 05/ 1807 80 05/ 1739 98.4 99 18 169/108 84 Room Air Intake & Output 09/27 1600 09/27 0809/27 0000 09/26 1600 09/26 0800 09/26 0000 Intake Total 200 Output Total 950 1550 1710 Balance -950 -1350 -1710 Intake, Oral 200 Output, Urine 950 1550 1710 Patient 235 lb Weight Weight Reported by Patient Measurement Method Physical Exam: General Appearance: well developed/nourished, alert, awake, oriented Head: normal HEENT: Normal Neck: supple, JVP normal, carotid upstrokes normal bilaterally, no masses or thyromegaly, no bruits Respiratory: chest non-tender, scattered bilateral rhonchi Cardiovascular: regular rate/rhythm, normal S1, S2, S4, 2/6 systolic murmur Abdomen: normal bowel sounds, soft, non-tender Extremities: normal inspection, 1-2+ edema bilaterally Vascular: Pulses are 2+ and equal bilaterally Neurologic: Grossly normal/nonfocal Labs/Ramon Results: Laboratory Tests 09/27 09/27 1200 0620 Chemistry Sodium (137 - 145 mmol/L) 142 Potassium (3.5 - 5.1 mmol/L) 4.1 Chloride (98 - 107 mmol/L) 96 L Carbon Dioxide (22 - 30 mmol/L) 40 H Anion Gap (5 - 16) 6 BUN (9 - 20 mg/dL) 22 H Creatinine (0.7 - 1.2 mg/dL) 0.9 Estimated GFR (>60 ml/min) > 60 BUN/Creatinine Ratio (7 - 25 %) 24.4 Magnesium (1.6 - 2.3 mg/dL) 1.5 L Troponin I (<0.11 ng/ml) Cancelled 0.11 *H Triglycerides (<150 mg/dL) 63 Cholesterol (< 200 MG/DL) 148 LDL Cholesterol, Calc (65 - 129 mg/dL) 89 HDL Cholesterol (40 - 60 mg/dL) 47 Cholesterol/HDL Ratio (0.00 - 4.88 %) 3 Hematology CBC w Diff NO MAN DIFF REQ WBC (4.8 - 10.8 /CUMM) 4.3 L RBC (4.70 - 6.10 /CUMM) 4.08 L Hgb (14.0 - 18.0 G/DL) 12.8 L Hct (42 - 52 %) 39.9 L MCV (80.0 - 94.0 FL) 97.8 H MCH (27.0 - 31.0 PG) 31.4 H MCHC (33.0 - 37.0 G/DL) 32.1 L RDW (11.5 - 14.5 %) 16.6 H Plt Count (130 - 400 /CUMM) 200 MPV (7.4 - 10.4 FL) 9.3 Gran % (42.2 - 75.2 %) 87.2 H Lymphocytes % (20.5 - 51.1 %) 7.3 L Monocytes % (1.7 - 9.3 %) 5.2 Eosinophils % (0 - 5 %) 0.1 Basophils % (0.0 - 2.0 %) 0.2 Absolute Granulocytes (1.4 - 6.5 /CUMM) 3.7 Absolute Lymphocytes (1.2 - 3.4 /CUMM) 0.3 L Absolute Monocytes (0.10 - 0.60 /CUMM) 0.2 Absolute Eosinophils (0.0 - 0.7 /CUMM) 0 Absolute Basophils (0.0 - 0.2 /CUMM) 0 09/27 09/27 09/26 0045 0017 1820 Chemistry Sodium (137 - 145 mmol/L) 142 Potassium (3.5 - 5.1 mmol/L) 4.2 Chloride (98 - 107 mmol/L) 98 Carbon Dioxide (22 - 30 mmol/L) 38 H Anion Gap (5 - 16) 6 BUN (9 - 20 mg/dL) 20 Creatinine (0.7 - 1.2 mg/dL) 1.0 Estimated GFR (>60 ml/min) > 60 BUN/Creatinine Ratio (7 - 25 %) 20.0 Glucose (65 - 99 mg/dL) 91 Hemoglobin A1c (4.2 - 5.8 %) 6.3 H Calcium (8.4 - 10.2 mg/dL) 8.7 Phosphorus (2.5 - 4.5 mg/dL) 4.1 Magnesium (1.6 - 2.3 mg/dL) 1.5 L Total Bilirubin (0.2 - 1.3 mg/dL) 0.5 AST (17 - 59 U/L) 40 ALT (21 - 72 U/L) 52 Alkaline Phosphatase (< 127 U/L) 68 Troponin I (<0.11 ng/ml) 0.10 0.11 *H [id number] Pept (<125 pg/mL) 3050 H Total Protein (6.3 - 8.2 g/dL) 5.7 L Albumin (3.5 - 5.0 g/dL) 3.0 L Globulin (1.9 - 4.2 gm/dL) 2.7 Albumin/Globulin Ratio (1.1 - 2.2 %) 1.1 Vitamin B12 (239 - 931 pg/mL) > 1000 H Folate (2.76 - 20.0 ng/mL) > 20.0 H TSH (0.270 - 4.200 uIU/mL) 2.200 Free T4 (0.78 - 2.44 ng/dL) 1.45 Coagulation D-Dimer High Sensitivty (0 - 243 ng/ml) 246 H Hematology CBC w Diff NO MAN DIFF REQ WBC (4.8 - 10.8 /CUMM) 9.4 RBC (4.70 - 6.10 /CUMM) 4.22 L Hgb (14.0 - 18.0 G/DL) 13.3 L Hct (42 - 52 %) 41.8 L MCV (80.0 - 94.0 FL) 98.9 H MCH (27.0 - 31.0 PG) 31.5 H MCHC (33.0 - 37.0 G/DL) 31.8 L RDW (11.5 - 14.5 %) 16.4 H Plt Count (130 - 400 /CUMM) 222 MPV (7.4 - 10.4 FL) 8.9 Gran % (42.2 - 75.2 %) 75.6 H Lymphocytes % (20.5 - 51.1 %) 11.7 L Monocytes % (1.7 - 9.3 %) 10.1 H Eosinophils % (0 - 5 %) 1.7 Basophils % (0.0 - 2.0 %) 0.9 Absolute Granulocytes (1.4 - 6.5 /CUMM) 7.1 H Absolute Lymphocytes (1.2 - 3.4 /CUMM) 1.1 L Absolute Monocytes (0.10 - 0.60 /CUMM) 1.0 H Absolute Eosinophils (0.0 - 0.7 /CUMM) 0.2 Absolute Basophils (0.0 - 0.2 /CUMM) 0.1 Toxicology Urine Opiates Screen (>2000 NG/ML) < 100 Methadone Screen (>300 NG/ML) < 40 Barbiturate Screen (>200 NG/ML) < 60 Ur Phencyclidine Scrn (>25 NG/ML) < 6.00 Amphetamines Screen (>1000 NG/ML) < 100 U Benzodiazepines Scrn (>200 NG/ML) < 85 Urine Cocaine Screen (>300 NG/ML) < 50 Urine Cannabis Screen (>50 NG/ML) > 80.00 H 05/03 1800 Blood Gas pH (7.35 - 7.45 PH) 7.35 pCO2 (35 - 45 TORR) 66 *H pO2 (80 - 100 TORR) 42 *L HCO3 (21 - 28 MEQ/L) 35 H ABG O2 Sat (Measured) (>96.0 %) 75.0 L Carboxyhemoglobin (1.5 - 5.0 %) 4.4 O2 Concentration % 21 O2 Delivery Method RA Miscellaneous Phlebotomy Draw Site RIGHT RADIAL Diagnostic Data CXR Results FINDINGS: There is a small right pleural effusion and bibasilar subsegmental atelectasis. The cardiac silhouette is enlarged and there is hilar vascular engorgement. The left lung is grossly clear. No pneumothorax. Upper mediastinal contours are unremarkable. No acute osseous finding. IMPRESSION: The heart is enlarged and there is hilar vascular engorgement. Small right pleural effusion and right basilar subsegmental atelectasis. The possibility of right basilar consolidation cannot be definitively excluded on the basis of this examination. Assessment/Plan Assessment/Plan Assessment: 1. Worsening shortness of breath and lower extremity edema with evidence of congestive heart failure; elevated proBNP-patient's presentation is most consistent with recent onset congestive heart failure with possible associated exacerbation of COPD, etc. The patient's echo cardiogram shows left ventricular dilatation with eccentric hypertrophy and global hypokinesia which is worse in the inferoposterior segment. The estimated ejection fraction is approximately 40-45%. Findings are most suggestive of hypertensive heart disease. Possibility of underlying ischemic disease cannot be excluded without further evaluation. 2. Possible exacerbation of COPD/asthma 3. Uncontrolled hypertension 4. Minimally elevated troponin 5. Probable obstructive sleep apnea 6. Hypomagnesemia Recommendation -Continue current medication regimen for now. Continue lisinopril 20 mg daily -Continue to monitor blood pressure -Continue diuresis with IV Lasix and close monitoring of intakes, outputs, daily weights, etc. -Follow-up labs in the morning. -In 24 hours, and further blood pressure optimization is necessary, the lisinopril can either be increased further to 30 or 40 mg daily. Another possibility would be to add low-dose carvedilol 3.125 mg twice daily to the regimen. -I discussed the situation in detail with the patient. I will follow him as an outpatient in several weeks. -at some point, if insurance is no longer an issue, the patient should have a pharmacologic nuclear stress test performed as well. Consult Acknowledgment - Thank you for your consult request.
[2017-09-27 14:20] VITALS: BP 160/90
[2017-09-27 23:29] VITALS: BP 148/90
[2017-09-28 07:05] VITALS: BP 138/86
--- NOTE | 2017-09-28 08:28 | PN- Housestaff ---
Paul SHAFFER,Sunil 09/28/17 0828: Subjective Follow-up For: heart failure acute hypoxic respiratory failure copd exacerbation Tele-Events Since Last Visit: sinus rhythm, no events Subjective: improving swelling and dyspnea remains on oxygen 92% on 5L no chest pain or new complaints Review of Systems Constitutional: Reports: see HPI. Objective Last 24 Hrs of Vital Signs/I&O Vital Signs Date Time Temp Pulse Resp B/P B/P Pulse O2 O2 Flow FiO2 Mean Ox Delivery Rate 09/28 1111 92 Nasal 5.0L Cannula 09/28 1111 79 Room Air 09/28 899 92 Nasal 4.0L Cannula 09/28 0800 Nasal 4.0L Cannula 09/28 0716 94 148/90 09/28 0705 97.5 100 20 138/86 95 Nasal Cannula 09/28 0000 BIPAP 45% 09/27 2329 98.9 94 20 148/90 93 Nasal Cannula 09/27 2112 94 Nasal 3.0L Cannula 09/27 1600 Nasal 4.0L Cannula 09/27 1420 97.8 94 20 160/90 93 Intake & Output 09/28 1600 09/28 0800 09/28 0000 Intake Total 110 Output Total 764 909 5105 Balance -300 -640 -1925 Intake, IV 10 Intake, Oral 100 Output, Urine 049 838 4093 Patient 105.29 kg Weight Physical Exam General Appearance: Alert, Oriented X3, Cooperative, No Acute Distress Cardiovascular: Regular Rate, Normal S1, Normal S2, systolic murmur Lungs: scattered rhonchi and expiratory wheezing Abdomen: Normal Bowel Sounds, Soft, No Tenderness, No Masses Extremities: 2+ bilateral lower extremity edema Current Medications: Current Medications Sig/Rene Start time Last Medication Dose Route Stop Time Status Admin Acetaminophen 650 MG Q6P PRN 09/26 2144 AC PO Acetaminophen 1,000 MG Q6P PRN 09/26 2144 AC IV Albuterol Sulfate 3 ML BID 09/27 899 AC 09/28 INH 0932 Aspirin 81 MG DAILY 09/27 899 AC 09/28 PO 0716 Atorvastatin Calcium 40 MG 1700 09/26 2200 AC 09/27 PO 1556 Enoxaparin Sodium 40 MG DAILY 09/27 899 AC 09/28 SC 0717 Furosemide 40 MG 7:30 AM, & 4:30 PM 09/27 0730 AC 09/28 IV 0716 Guaifenesin 10 ML Q4P PRN 05/03 2145 AC PO Lisinopril 20 MG DAILY 09/27 0900 AC 09/28 PO 0716 Magnesium Oxide 400 MG BID 09/26 2345 AC 09/28 PO 0716 Methylprednisolone 40 MG Q12 09/28 2100 AC IV Methylprednisolone 40 MG Q8 09/27 06 DC 09/28 IV 0543 Patient Medication 1 ED ONE ONE 09/27 1730 DC Teaching ED 09/27 1731 Last 24 Hrs of Lab/Ramon Results Last 24 Hrs of Labs/Mics: Laboratory Tests 09/28/17 0712: Anion Gap 7, Estimated GFR > 60, BUN/Creatinine Ratio 25.0, Magnesium 1.6, CBC w Diff NO MAN DIFF REQ, RBC 4.31 L, MCV 98.3 H, MCH 31.2 H, MCHC 31.8 L, RDW 16.3 H, MPV 9.4, Gran % 90.8 H, Lymphocytes % 4.5 L, Monocytes % 4.7, Eosinophils % 0, Basophils % 0, Absolute Granulocytes 13.1 H, Absolute Lymphocytes 0.6 L, Absolute Monocytes 0.7 H, Absolute Eosinophils 0, Absolute Basophils 0 Assessment/Plan Assessment: 59 year old male with PMH significant for HTN, asthma, COPD, and smoking presented complaining of lower extremity swelling and dyspnea. Acute hypoxic respiratory failure Multifactorial from COPD exacerbation HF Continue IV diuresis Follow-up echocardiogram Strict I/Os, daily weights Cardiology consultations proBNP 3000 Troponin borderline elevated, flat trend 0.11 No ischemic EKG changes Remains on oxygen, room air at home Titrate down, maintain SpO2 >92% TRC evaluation Continue nebulized albuterol prn Solumedrol 40mg q8h decreased to 40mg q12 Likely chronic hypercarbic respiratory failure with bicarbonate elevated on BEP Hypertension: Continue lisinopril 20 mg Blood pressure remains elevated but will hold on starting beta blockade in acute heart failure Norvasc 5mg x 1 dose today Heart healthy diet DVT ppx-Lovenox Full code Problem List: 1. Hypertension 2. Congestive heart failure 3. Acute CHF (congestive heart failure) 4. Hypoxia 5. Troponin level elevated 6. COPD (chronic obstructive pulmonary disease) Pain Ratin Pain Location: n/a Pain Goal: Pain 4 or less Pain Plan: prn Tomorrow's Labs & Rationales: bep, Sonu Zamudio 09/28/17 1254: Attending MD Review Statement Attending Statement Attending MD Statement: examined this patient, discuss w/resident/PA/CITY SANITARIAN, agreed w/resident/PA/CITY SANITARIAN, discussed with family, reviewed EMR data (avail), discussed with nursing, discussed with case mgmt, reviewed images, amended to note Attending Assessment/Plan: Patient seen/examined bedside. Patient denies any new complaints. Cardiac enzymes noted to be type 2 NM. Patient is on iv lasix and iv steroids with mild improvement. He is on 3l oxygen supplementation. Taper iv steroids. Titrate oxygen as clinical condition allows. Cont current care..
[2017-09-28 08:34] LABS: ABSOLUTE BASOPHIL COUNT 0 /CUMM (0.0-0.2); ABSOLUTE EOSINOPHIL COUNT 0 /CUMM (0.0-0.7); ABSOLUTE LYMPH COUNT 0.6 /CUMM (1.2-3.4); ABSOLUTE MONOCYTE COUNT 0.7 /CUMM (0.10-0.60); EOSINOPHIL % 0 % (0-5); HEMATOCRIT 42.3 % (42-52); MEAN PLATELET VOLUME 9.4 FL (7.4-10.4); RBC DISTRIBUTION WIDTH 16.3 % (11.5-14.5)
[2017-09-28 09:01] LABS: ABSOLUTE GRANULOCYTE CT 13.1 /CUMM (1.4-6.5); BASOPHIL % 0 % (0.0-2.0); MEAN CORPUSCULAR HGB 31.2 PG (27.0-31.0); MEAN CORPUSCULAR HGB CONC 31.8 G/DL (33.0-37.0); MEAN CORPUSCULAR VOLUME 98.3 FL (80.0-94.0); PLATELET COUNT 228 /CUMM (130-400); RED BLOOD CELL CT 4.31 /CUMM (4.70-6.10)
[2017-09-28 09:11] LABS: WHITE BLOOD CELL COUNT 14.4 /CUMM (4.8-10.8)
[2017-09-28 09:50] LABS: GRANULOCYTE % 90.8 % (42.2-75.2)
[2017-09-28 13:42] VITALS: BP 154/92
[2017-09-28 22:37] VITALS: BP 150/98
[2017-09-29 06:42] VITALS: BP 160/100
[2017-09-29 07:58] VITALS: BP 144/100
[2017-09-29 08:46] LABS: ABSOLUTE BASOPHIL COUNT 0 /CUMM (0.0-0.2); ABSOLUTE EOSINOPHIL COUNT 0 /CUMM (0.0-0.7); ABSOLUTE GRANULOCYTE CT 11.9 /CUMM (1.4-6.5); ABSOLUTE LYMPH COUNT 0.4 /CUMM (1.2-3.4); ABSOLUTE MONOCYTE COUNT 0.4 /CUMM (0.10-0.60); BASOPHIL % 0.1 % (0.0-2.0); EOSINOPHIL % 0 % (0-5); HEMATOCRIT 42.4 % (42-52); MEAN CORPUSCULAR HGB 30.8 PG (27.0-31.0); MEAN CORPUSCULAR HGB CONC 31.3 G/DL (33.0-37.0); MEAN CORPUSCULAR VOLUME 98.1 FL (80.0-94.0); MEAN PLATELET VOLUME 9.4 FL (7.4-10.4); PLATELET COUNT 222 /CUMM (130-400); RBC DISTRIBUTION WIDTH 16.1 % (11.5-14.5); RED BLOOD CELL CT 4.32 /CUMM (4.70-6.10); WHITE BLOOD CELL COUNT 12.8 /CUMM (4.8-10.8)
--- NOTE | 2017-09-29 09:04 | PN- Housestaff ---
Joshua SHAFFER,Yordy 09/29/17 0903: Subjective Follow-up For: Acute hypoxic respiratory failure Decompensated heart failure COPD exacerbation Tele-Events Since Last Visit: Sinus rhythm with HR 80s-100s Subjective: Patient was seen and examined at bedside. He is resting comfortably. He had no acute events overnight. He endorses a mild cough which is intermittent and nonproductive. He states that he has never experienced shortness of breath, however per documentation he has desaturated when attempts have been made to decrease supplemental O2. He reports continued improvement in his lower extremity swelling. He denies any chest pain, palpitations, fever, chills, nausea vomiting. Review of Systems Constitutional: Reports: see HPI. Objective Last 24 Hrs of Vital Signs/I&O Vital Signs Date Time Temp Pulse Resp B/P B/P Pulse O2 O2 Flow FiO2 Mean Ox Delivery Rate 09/29 0801 93 144/100 09/29 0758 93 144/100 09/29 0642 97.7 93 20 160/100 93 Nasal 5.0L Cannula 09/28 2340 Nasal 5.0L Cannula 09/28 2237 98.4 104 18 150/98 91 Nasal 5.0L Cannula 09/28 2054 90 Nasal 5.0L Cannula 09/28 1433 97.9 98 20 92 Room Air 09/28 1343 97 154/92 09/28 1342 97 154/92 09/28 1111 92 Nasal 5.0L Cannula 09/28 1111 79 Room Air Intake & Output 09/29 1600 09/29 0800 05 0000 Intake Total 240 934 Output Total 850 2800 Balance -610 -1866 Intake, IV 14 Intake, Oral 240 920 Output, Urine 850 2800 Physical Exam General Appearance: Alert, Oriented X3, Cooperative Cardiovascular: Regular Rate, Normal S1, Normal S2 Lungs: scant rhonchi, mild expiratory wheezing Abdomen: Normal Bowel Sounds, Soft, No Tenderness Extremities: 1+ lower extremity edema bilaterally Current Medications: Current Medications Sig/Rene Start time Last Medication Dose Route Stop Time Status Admin Acetaminophen 650 MG Q6P PRN 09/26 2144 AC PO Acetaminophen 1,000 MG Q6P PRN 09/26 2144 AC IV Albuterol Sulfate 3 ML BID 09/27 0900 AC 09/28 INH 2029 Amlodipine Besylate 5 MG ONCE ONE 09/28 1300 DC 09/28 PO 09/28 1301 1343 Aspirin 81 MG DAILY 09/27 09 AC 09/29 PO 0801 Atorvastatin Calcium 40 MG 1700 09/26 2200 AC 09/28 PO 1552 Enoxaparin Sodium 40 MG DAILY 09/27 09 AC 09/29 SC 0800 Furosemide 40 MG 7:30 AM, & 4:30 PM 09/27 0730 AC 09/29 IV 0800 Guaifenesin 10 ML Q4P PRN 09/26 2145 AC PO Lisinopril 20 MG DAILY 09/27 09 AC 09/29 PO 0801 Magnesium Oxide 400 MG BID 09/26 2345 AC 09/29 PO 0801 Methylprednisolone 40 MG Q12 09/28 2100 AC 09/29 IV 0800 Methylprednisolone 40 MG Q8 09/27 06 DC 09/28 IV 0543 Last 24 Hrs of Lab/Ramon Results Last 24 Hrs of Labs/Mics: Laboratory Tests 09/29/17 0630: Anion Gap 5, Estimated GFR > 60, BUN/Creatinine Ratio 28.8 H, Magnesium 1.6, CBC w Diff NO MAN DIFF REQ, RBC 4.32 L, MCV 98.1 H, MCH 30.8, MCHC 31.3 L, RDW 16.1 H, MPV 9.4, Gran % 93.6 H, Lymphocytes % 2.8 L, Monocytes % 3.5, Eosinophils % 0, Basophils % 0.1, Absolute Granulocytes 11.9 H, Absolute Lymphocytes 0.4 L, Absolute Monocytes 0.4, Absolute Eosinophils 0, Absolute Basophils 0 Assessment/Plan Assessment: Patient is a 59-year-old male with a PMH significant for HTN, asthma, COPD, significant smoking history who presented complaining of lower extremity swelling and shortness of breath. #Acute hypoxic respiratory failure Likely multifactorial with COPD exacerbation and decompensated heart failure -Follow-up echocardiogram -Continue IV Lasix -Continue TRC/nebs -Taper supplemental O2 as tolerated -Continue current dose of Solu-Medrol 40 mg every 12 hours given continued increase in O2 demand and persistent wheezing -Follow-up repeat chest x-ray #Hypertension -Continue lisinopril 20 mg -BP remains mildly elevated but improved since admission, if continues to be elevated tomorrow will increase lisinopril dose Diet: Heart healthy DVT prophylaxis: Lovenox, Alps CODE STATUS: Full code Problem List: 1. COPD (chronic obstructive pulmonary disease) 2. Acute CHF (congestive heart failure) 3. Hypoxia Pain Ratin Pain Location: none Pain Goal: Remain pain free Pain Plan: Pain pathway Tomorrow's Labs & Rationales: CBC, BEP Sonu Butts 09/29/17 1253: Attending MD Review Statement Attending Statement Attending MD Statement: examined this patient, discuss w/resident/PA/MANAGER COST, agreed w/resident/PA/MANAGER COST, discussed with family, reviewed EMR data (avail), discussed with nursing, discussed with case mgmt, reviewed images, amended to note Attending Assessment/Plan: Patient seen/examined bedside. Patient still requiring 4 l oxygen supplementation. He has b/l wheeizing with use of accessory muscles. Cardiac enzymes noted to be type 2 CA. Patient is on iv lasix and iv steroids with mild improvement. He is on 4l oxygen supplementation. Obtain repeat chest xray. Titrate oxygen as clinical condition allows. Cont current care.
[2017-09-29 09:29] LABS: GRANULOCYTE % 93.6 % (42.2-75.2)
--- NOTE | 2017-09-29 13:09 | PN- Cardiology ---
Subjective Subjective: No acute events. Patient diuresing well. Feels better but still requirig O2 4- 5L. BP 150-160/90-100 mmHg. Objective Vital Signs and I&Os Vital Signs Date Time Temp Pulse Resp B/P B/P Pulse O2 O2 Flow FiO2 Mean Ox Delivery Rate 09/29 0910 89 Nasal 5.0L Cannula 09/29 0801 93 144/100 / 0800 Nasal 5.0L Cannula 09/29 0758 93 144/100 / 0642 97.7 93 20 160/100 93 Nasal 5.0L Cannula 09/28 2340 Nasal 5.0L Cannula 09/28 2237 98.4 104 18 150/98 91 Nasal 5.0L Cannula 09/28 2054 90 Nasal 5.0L Cannula 09/28 1433 97.9 98 20 92 Room Air 09/28 1343 97 154/92 09/28 1342 97 154/92 Intake & Output 09/29 1600 09/29 0800 / 0000 09/28 1600 09/28 0809/28 0000 Intake Total 240 934 854 110 Output Total 850 2800 2725 750 1925 [facility] -610 -1866 -1871 -640 -1925 Intake, IV 14 14 10 Intake, Oral 240 920 840 100 Output, Urine 850 2800 2725 750 1925 Patient 221 lb 232 lb Weight Weight Bed scale Measurement Method Physical Exam: General Appearance: Alert, Oriented X3, No Acute Distress Neck: jugular difficult to assess with respiratory efforts, trachea midline Cardiovascular: Regular Rate, Normal S1, Normal S2, systolic murmur Lungs: scattered rhonchi and expiratory wheezing Abdomen: Normal Bowel Sounds, Soft, No Tenderness Extremities: 2+ bilateral lower extremity edema Current Medications: Current Medications Sig/Rene Start time Last Medication Dose Route Stop Time Status Admin Acetaminophen 650 MG Q6P PRN 09/26 2144 AC PO Acetaminophen 1,000 MG Q6P PRN 09/26 2144 AC IV Albuterol Sulfate 3 ML TID 09/29 1400 AC INH Albuterol Sulfate 3 ML BID 09/27 09 DC 09/29 INH 0904 Aspirin 81 MG DAILY 09/27 09 AC 09/29 PO 0801 Atorvastatin Calcium 40 MG 1700 09/26 2200 AC 09/28 PO 1552 Enoxaparin Sodium 40 MG DAILY 09/27 899 AC 09/29 SC 0800 Furosemide 40 MG 7:30 AM, & 4:30 PM 09/27 0730 AC 09/29 IV 0800 Guaifenesin 10 ML Q4P PRN 09/26 2145 AC PO Lisinopril 20 MG DAILY 09/27 09 AC 09/29 PO 0801 Magnesium Oxide 400 MG BID 09/26 2345 AC 09/29 PO 0801 Methylprednisolone 40 MG Q12 09/28 2100 AC 09/29 IV 0800 Results Last 48 Hrs of Labs/Mics: Laboratory Tests 09/29/17629: Anion Gap 5, Estimated GFR > 60, BUN/Creatinine Ratio 28.8 H, Magnesium 1.6, CBC w Diff NO MAN DIFF REQ, RBC 4.32 L, MCV 98.1 H, MCH 30.8, MCHC 31.3 L, RDW 16.1 H, MPV 9.4, Gran % 93.6 H, Lymphocytes % 2.8 L, Monocytes % 3.5, Eosinophils % 0, Basophils % 0.1, Absolute Granulocytes 11.9 H, Absolute Lymphocytes 0.4 L, Absolute Monocytes 0.4, Absolute Eosinophils 0, Absolute Basophils 0 09/28/17711: Anion Gap 7, Estimated GFR > 60, BUN/Creatinine Ratio 25.0, Magnesium 1.6, CBC w Diff NO MAN DIFF REQ, RBC 4.31 L, MCV 98.3 H, MCH 31.2 H, MCHC 31.8 L, RDW 16.3 H, MPV 9.4, Gran % 90.8 H, Lymphocytes % 4.5 L, Monocytes % 4.7, Eosinophils % 0, Basophils % 0, Absolute Granulocytes 13.1 H, Absolute Lymphocytes 0.6 L, Absolute Monocytes 0.7 H, Absolute Eosinophils 0, Absolute Basophils 0 Assessment/Plan Assessment/Plan CHF + type II NSTEMI, COPD exacerbation likely secondary to CHF. hypertension in setting of Rx discontinuation due to loss of medical coverage. Subjectively improved, good diuresis with lasix 40 mg IV bid, which i would continue. BP improved but not at target yet, i would add norvasc 5 mg-10 mg daily, as the CHF will be refractory until BP is controlled. Repeat BNP in 48 hrs. Continue telemetry? Yes
[2017-09-29 14:25] VITALS: BP 162/94
--- NOTE | 2017-09-29 14:35 | RADIOLOGY REPORT ---
EXAMINATION: XR CHEST CLINICAL INFORMATION: Continues to have increasing O2 demand despite diuresis and IV steroids. COPD and CHF exacerbation. COMPARISON: Prior chest x-ray dated 09/26/2017 and 10/14/2013. TECHNIQUE: 2 views of the chest were obtained on 3 images. FINDINGS: The cardiomediastinal silhouette is enlarged, unchanged. Lungs bilaterally are hyperinflated, consistent with obstructive lung disease. There are persistent trace bilateral pleural effusions with associated linear opacities, right greater than left, likely due to subsegmental atelectasis. No evolving dense consolidation is seen. Mild central vascular congestion. No evidence of pulmonary edema or pneumothorax. Bony structures unremarkable. IMPRESSION: 1. Cardiomegaly and mild central vascular congestion again noted. 2. Chronic obstructive lung disease. 3. Trace bilateral pleural effusions and associated bibasilar atelectatic changes, similar to the previous exam. No superimposed evolving pneumonia noted.
[2017-09-29 17:18] VITALS: BP 170/92
[2017-09-29 22:16] VITALS: BP 150/92
[2017-09-30 06:57] VITALS: BP 152/80
--- NOTE | 2017-09-30 07:15 | PN- Housestaff ---
Joshua SHAFFER,Yordy 09/30/17 0714: Subjective Follow-up For: Asthma exacerbation Compensated heart failure Tele-Events Since Last Visit: Sinus rhythm with HR [id number], multiple 3 beat runs of NSVT, multiple PVCs Subjective: Patient was seen and examined at bedside. He is resting comfortably. He had no acute events overnight. He denies shortness of breath even with ambulation, while on oxygen however attempts to wean off of supplemental O2 have been unsuccessful secondary to desaturation. Patient reports continued improvement of lower extremity swelling. He denies any chest pain, shortness breath, nausea , vomiting, fever, chills. Review of Systems Constitutional: Reports: see HPI. Objective Last 24 Hrs of Vital Signs/I&O Vital Signs Date Time Temp Pulse Resp B/P B/P Pulse O2 O2 Flow FiO2 Mean Ox Delivery Rate 09/30 0557 97.9 88 20 152/80 97 Nasal Cannula / 2216 98.3 94 20 150/92 95 Nasal Cannula / 2205 Nasal 6.0L Cannula 09/30 2011 91 Nasal 6.0L Cannula / 1718 99 170/92 / 1718 99 170/92 05/06 1425 99.1 94 20 162/94 93 Nasal Cannula /06 0910 89 Nasal 5.0L Cannula /06 0801 93 144/100 /06 0800 Nasal 5.0L Cannula / 0758 93 144/100 Intake & Output / 0800 05/07 0000 05/06 1600 Intake Total 300 1334 1575 Output Total 1075 1800 2350 Balance -775 -466 -775 Intake, IV 14 15 Intake, Oral 300 1320 1560 Output, Urine 1075 1800 2350 Patient 219 lb 221 lb Weight Weight Bed scale Bed scale Measurement Method Physical Exam General Appearance: Alert, Oriented X3, Cooperative, No Acute Distress Skin Temp/Moisture Exam: Warm/Dry Cardiovascular: Regular Rate, Normal S1, Normal S2 Lungs: scant rhonchi and expiratory wheezing Abdomen: Normal Bowel Sounds, Soft, No Tenderness Neurological: Normal Speech, Normal Tone, Sensation Intact Extremities: 1+ lower extremity edema bilaterally Current Medications: Current Medications Sig/Rene Start time Last Medication Dose Route Stop Time Status Admin Acetaminophen 650 MG Q6P PRN 09/26 2144 AC PO Acetaminophen 1,000 MG Q6P PRN 09/26 2144 AC IV Albuterol Sulfate 3 ML TID 09/29 1400 AC 09/29 INH 2010 Albuterol Sulfate 3 ML BID 09/27 0900 DC 09/29 INH 09 Amlodipine Besylate 5 MG DAILY 09/29 1641 AC 09/29 PO 1718 Aspirin 81 MG DAILY 09/27 899 AC 09/29 PO 0801 Atorvastatin Calcium 40 MG 1700 09/26 2200 AC 09/29 PO 1546 Enoxaparin Sodium 40 MG DAILY 09/27 899 AC 09/29 SC 0800 Furosemide 40 MG 7:30 AM, & 4:30 PM 09/27 0730 AC 09/29 IV 1545 Guaifenesin 10 ML Q4P PRN 09/26 214 AC PO Lisinopril 20 MG DAILY 09/27 899 AC 09/29 PO 08 Magnesium Oxide 400 MG BID 09/26 2345 AC 09/29 PO 2028 Methylprednisolone 40 MG Q12 09/28 2100 AC 09/29 IV 2028 Last 24 Hrs of Lab/Ramon Results Last 24 Hrs of Labs/Mics: Laboratory Tests 09/30/17 0626: Anion Gap 6, Estimated GFR > 60, BUN/Creatinine Ratio 25.7 H, Magnesium 1.8, CBC w Diff NO MAN DIFF REQ, RBC 4.22 L, MCV 98.3 H, MCH 31.0, MCHC 31.5 L, RDW 16.3 H, MPV 9.5, Gran % 92.0 H, Lymphocytes % 3.2 L, Monocytes % 4.8, Eosinophils % 0, Basophils % 0, Absolute Granulocytes 10.3 H, Absolute Lymphocytes 0.4 L, Absolute Monocytes 0.5, Absolute Eosinophils 0, Absolute Basophils 0 Assessment/Plan Assessment: Patient is a 59-year-old male with a PMH significant for HTN, asthma, COPD, significant smoking history who presented complaining of lower extremity swelling and shortness of breath. #Acute hypoxic respiratory failure Likely multifactorial with asthma exacerbation and decompensated heart failure -Follow-up echocardiogram -Continue IV Lasix -Continue TRC/nebs -Taper supplemental O2 as tolerated -Continue current dose of Solu-Medrol 40 mg every 12 hours given, will start by mouth prednisone tomorrow -We'll consider bone consult tomorrow if patient continues to desaturate when attempting to wean off of supplemental O2 -Cardiology recommendations appreciated #Hypertension -Continue lisinopril 20 mg -Started amlodipine 10 mg daily given persistently elevated BP Diet: Heart healthy DVT prophylaxis: Lovenox, Alps CODE STATUS: Full code Problem List: 1. Asthma exacerbation 2. Acute CHF (congestive heart failure) Pain Ratin Pain Location: None Pain Goal: Pain 4 or less Pain Plan: Pain pathway Tomorrow's Labs & Rationales: BEP, magnesium Valery SHAFFER,Jami 09/30/17 1132: Attending MD Review Statement Attending Statement Attending MD Statement: examined this patient, discuss w/resident/PA/METAL FENCE ERECTOR, agreed w/resident/PA/METAL FENCE ERECTOR, reviewed EMR data (avail) Attending Assessment/Plan: 62M PMH HTN, HLD, COPD admitted with a month of exertional dyspnea now with shortness of breath at rest, found to be fluid overloaded with weakly positive troponin, started on Lasix and Solumedrol overnight with significant diuresis and clinical improvement. Diuresed well over the weekend with significant improvement of edema. Remains hypoxic requiring 2L NC. Asymptomatic. 1. Acute on chronic systolic CHF 2. Dyspnea at rest 3. Type 2 myocardial infarction Plan - Continue on telemetry - Continue Lasix at 40mg IV daily, monitor I/O, daily weights - Continue Solumedrol 40mg IV BID today, consider decrease to Prednisone tomorrow if oxygen can be titrated down - Nebulizer treatments - Chest physiotherapy - Follow cardiology recommendations - Continue home medications - DVT PPx
[2017-09-30 08:06] LABS: ABSOLUTE BASOPHIL COUNT 0 /CUMM (0.0-0.2); ABSOLUTE EOSINOPHIL COUNT 0 /CUMM (0.0-0.7); ABSOLUTE GRANULOCYTE CT 10.3 /CUMM (1.4-6.5); ABSOLUTE LYMPH COUNT 0.4 /CUMM (1.2-3.4); ABSOLUTE MONOCYTE COUNT 0.5 /CUMM (0.10-0.60); BASOPHIL % 0 % (0.0-2.0); EOSINOPHIL % 0 % (0-5); HEMATOCRIT 41.5 % (42-52); MEAN CORPUSCULAR HGB CONC 31.5 G/DL (33.0-37.0); MEAN CORPUSCULAR VOLUME 98.3 FL (80.0-94.0); MEAN PLATELET VOLUME 9.5 FL (7.4-10.4); PLATELET COUNT 195 /CUMM (130-400); RBC DISTRIBUTION WIDTH 16.3 % (11.5-14.5); RED BLOOD CELL CT 4.22 /CUMM (4.70-6.10); WHITE BLOOD CELL COUNT 11.2 /CUMM (4.8-10.8)
[2017-09-30 14:00] VITALS: BP 150/64
--- NOTE | 2017-09-30 15:57 | ECHOCARDIOGRAM REPORT ---
MAI ZUÑIGA Age: 62 : 1955 Gender: M Exam Date: 09/27/2017 09:40 Exam Location: [facility] Ht (in): 72 Wt (lb): 230 BSA: 2.33 BP: 162 / 100 Ordering Physician: Veto Zimmer MD Referring Physician: Veto Zimmer MD Technologist: Sarmad Joseph RDCS Room Number: Indications: HEART FAILURE Rhythm: Sinus Technical Quality: Fair FINDINGS Left Ventricle Normal global left ventricular size, wall thickness, systolic function with no obvious regional wall motion abnormalities. Moderate left ventricular dilatation. Left ventricular wall thickness increased. Mildly reduced global left ventricular systolic function. Mildly abnormal left ventricular ejection fraction estimated at 40-45%. Right Ventricle Right ventricle at upper limits of normal. Right Atrium Normal right atrial size. Left Atrium Mild to moderate left atrial dilatation. Mitral Valve Mitral valve thickened. [id number] mitral regurgitation. Aortic Valve Trileaflet aortic valve. Diffuse thickening (sclerosis) of the aortic valve cusps without reduced excursion. No aortic stenosis. No aortic regurgitation. Tricuspid Valve Tricuspid valve not well visualized, grossly normal. Mild tricuspid regurgitation. Right ventricular systolic pressure estimated at 36 mmHg. Pulmonic Valve Pulmonic valve not well visualized, grossly normal. Mild pulmonic regurgitation. Pericardium Normal pericardium. Small pericardial effusion. Great Vessels Aortic root and proximal ascending aorta not well visualized, grossly normal. CONCLUSIONS 1. Aortic sclerosis is present with no valvular stenosis or insufficiency. 2. Mitral leaflet thickening is present with mild to moderate mitral insufficiency and mild to moderate left atrial enlargement. 3. A very small pericardial effusion is present. 4. The left ventricular chamber is moderately enlarged with eccentric hypertrophy, global hypokinesia which is worse in the inferoposterior segments and an ejection fraction of approximately 45%. 5. Mild tricuspid and pulmonic insufficiency are present with no evidence of pulmonary hypertension. 6. This was a technically difficult examination. Rea Rousseau M.D. (Electronically Signed) Final Date: 30 Sep 2017 15:56 MEASUREMENTS (Male / Female) Normal Values 2D ECHO LV Diastolic Diameter PLAX 6.7 cm 4.2 - 5.9 / 3.9 - 5.3 cm LV Systolic Diameter PLAX 4.9 cm 2.1 - 4.0 cm LV Fractional Shortening PLAX 26.9 % 25 - 46 % LV Ejection Fraction 2D Teich 51.2 % IVS Diastolic Thickness 1.3 cm LVPW Diastolic Thickness 1.3 cm LV Relative Wall Thickness 0.4 RV Internal Dim ED PLAX 3.8 cm 1.9 - 3.8 cm LVOT Diameter 2.1 cm Aortic Root Diameter 3.3 cm LA Systolic Diameter LX 4.5 cm 3.0 - 4.0 / 2.7 - 3.8 cm LA Volume 80.0 cm 18 - 58 / 22 - 52 cm Ascending Aorta Diameter 3.3 cm DOPPLER AV Peak Velocity 170.0 cm/s AV Peak Gradient 11.6 mmHg AV Mean Velocity 118.0 cm/s AV Mean Gradient 6.0 mmHg AV Velocity Time Integral 33.6 cm LVOT Peak Velocity 124.0 cm/s LVOT Peak Gradient 6.2 mmHg LVOT Mean Velocity 76.8 cm/s LVOT Mean Gradient 3.0 mmHg LVOT Velocity Time Integral 24.6 cm LVOT Stroke Volume 85.2 cm AV Area Cont Eq vti 2.5 cm AV Area Cont Eq pk 2.5 cm MV Peak Velocity 135.0 cm/s MV Peak Gradient 7.3 mmHg MV Mean Velocity 86.1 cm/s MV Mean Gradient 3.0 mmHg Mitral E Point Velocity 96.0 cm/s Mitral A Point Velocity 115.0 cm/s Mitral E to A Ratio 0.8 MV PHT Velocity 141.0 cm/s MV Deceleration Lee 723.0 cm/s MV Pressure Half Time 58.5 ms MV Area PHT 3.8 cm MV Deceleration Time 183.0 ms MR Peak Velocity 589.0 cm/s MR Peak Gradient 138.8 mmHg TR Peak Velocity 274.0 cm/s TR Peak Gradient 30.0 mmHg Right Atrial Pressure 10.0 mmHg Pulmonary Artery Systolic Pressu 40.0 mmHg Right Ventricular Systolic Press 40.0 mmHg PV Peak Velocity 96.5 cm/s PV Peak Gradient 3.7 mmHg PV Mean Velocity 70.6 cm/s PV Mean Gradient 2.0 mmHg PV Velocity Time Integral 18.0 cm LV E' Lateral Velocity 6.9 cm/s Mitral E to LV E' Lateral Ratio 13.9 LV E' Septal Velocity 5.4 cm/s Mitral E to LV E' Septal Ratio 17.9
--- NOTE | 2017-09-30 18:22 | PN- Cardiology ---
Subjective Subjective: Still short of breath. No chest pain. No palpitations. No diaphoresis. No nausea or vomiting. Objective Vital Signs and I&Os Vital Signs Date Time Temp Pulse Resp B/P B/P Pulse O2 O2 Flow FiO2 Mean Ox Delivery Rate 10/01 1439 98.0 87 20 142/90 94 Nasal 4.0L Cannula 10/01 1125 72 150/96 10/01 0822 86 154/102 10/01 08 94 Nasal 5.0L Cannula 10/01 0752 96 Nasal 5.0L Cannula 10/01 06 97.9 86 18 154/102 94 Nasal 5.0L Cannula 10/01 0219 90 172/106 10/01 0016 90 172/106 10/01 0000 Nasal 4.0L Cannula 09/30 2230 96 162/110 09/30 2145 98.3 94 18 158/100 94 Nasal Cannula 09/30 2008 96 Nasal 5.0L Cannula Intake & Output 10/01 1600 10/01 0800 / 0000 09/30 1600 09/30 0809/30 0000 Intake Total 600 380 846 474 4997 Output Total 2000 2400 088 463 1805 1800 Balance -1400 -2020 -950 -220 -775 -466 Intake, IV 30 14 Intake, Oral 600 380 589 505 5061 Output, Urine 2000 2400 184 319 2761 1800 Patient 214 lb 219 lb Weight Weight Bed scale Measurement Method Physical Exam: Gen: NAD HEENT: normal Lungs: Bilateral rhonchi, normal resp. effort Heart: RRR, S1, S2, 2 out of 6 systolic murmur Abdomen: Soft, nontender, no masses Extremities: 2+ edema Neuro: Alert and oriented x 3, cranial nerves intact Current Medications: Current Medications Sig/Rene Start time Last Medication Dose Route Stop Time Status Admin Acetaminophen 650 MG Q6P PRN 09/26 2144 AC PO Acetaminophen 1,000 MG Q6P PRN 09/26 2144 AC IV Albuterol Sulfate 3 ML TID 09/29 1400 AC 10/01 INH 1351 Amlodipine Besylate 10 MG DAILY 10/01 899 AC 10/01 PO 0822 Aspirin 81 MG DAILY 09/27 899 AC 10/01 PO 0821 Atorvastatin Calcium 40 MG 1700 09/26 2200 AC 09/30 PO 1713 Enoxaparin Sodium 40 MG DAILY 09/27 899 AC 10/01 SC 0831 Furosemide 40 MG 7:30 AM, & 4:30 PM 09/27 0730 AC 10/01 IV 0822 Guaifenesin 10 ML Q4P PRN 09/26 2145 AC PO Lisinopril 20 MG DAILY 10/01 0200 AC 10/01 PO 0219 Lisinopril 20 MG DAILY 09/27 0900 DC 09/30 PO 0752 Magnesium Oxide 400 MG BID 09/26 2345 AC 10/01 PO 0821 Methylprednisolone 40 MG Q12 09/28 2100 AC 10/01 IV 0822 Results Last 48 Hrs of Labs/Mics: Laboratory Tests 10/01/17 0618: Anion Gap 5, Estimated GFR > 60, BUN/Creatinine Ratio 28.6 H, Magnesium 1.8, Skm-[id number]-Umdvvkxetnk Pept 2160 H 09/30/17 0626: Anion Gap 6, Estimated GFR > 60, BUN/Creatinine Ratio 25.7 H, Magnesium 1.8, CBC w Diff NO MAN DIFF REQ, RBC 4.22 L, MCV 98.3 H, MCH 31.0, MCHC 31.5 L, RDW 16.3 H, MPV 9.5, Gran % 92.0 H, Lymphocytes % 3.2 L, Monocytes % 4.8, Eosinophils % 0, Basophils % 0, Absolute Granulocytes 10.3 H, Absolute Lymphocytes 0.4 L, Absolute Monocytes 0.5, Absolute Eosinophils 0, Absolute Basophils 0 Assessment/Plan Assessment/Plan Assessment: 1. COPD exacerbation 2. Acute on chronic heart failure with reduced ejection fraction 3. Hypertension 4. Mild troponin elevation Plan: * Continue IV Lasix * Monitor input and output with daily weights * Continue other cardiac medications Continue telemetry? Yes
[2017-09-30 21:45] VITALS: BP 158/100
[2017-09-30 22:30] VITALS: BP 162/110
[2017-09-30 23:38] VITALS: BP 158/100
[2017-10-01 00:16] VITALS: BP 172/106
[2017-10-01 06:00] VITALS: BP 154/102
--- NOTE | 2017-10-01 07:11 | PN- Housestaff ---
Joshua SHAFFER,Yordy 10/01/17 0710: Subjective Follow-up For: decompensated HF asthma/COPD exacerbation Tele-Events Since Last Visit: multiple 3-4 beat runs of NSVT Subjective: Patient was seen and examined at bedside. He is resting comfortably. He had no acute events overnight. He denies any dyspnea when attempted wean down his supplemental O2, however he did desaturate. He is becoming frustrated with his extended length of stay, however understands the rationale for keeping him given his oxygen desaturation. He denies any chest pain, chest discomfort, nausea, vomiting, fever, chills. Review of Systems Constitutional: Reports: see HPI. Objective Last 24 Hrs of Vital Signs/I&O Vital Signs Date Time Temp Pulse Resp B/P B/P Pulse O2 O2 Flow FiO2 Mean Ox Delivery Rate 10/01 0219 90 172/106 10/01 0016 90 172/106 10/01 0000 Nasal 4.0L Cannula 09/30 2230 96 162/110 09/30 214 98.3 94 18 158/100 94 Nasal Cannula 09/30 2008 96 Nasal 5.0L Cannula 09/30 1400 98.0 80 20 150/64 97 09/30 1216 93 146/90 09/30 0825 92 Nasal 6.0L Cannula 09/30 08 97 Nasal 6.0L Cannula 09/30 0752 88 152/80 09/30 0752 88 152/80 Intake & Output 10/01 0800 10/01 0000 09/30 1600 Intake Total 430 Output Total 950 650 Balance -950 -220 Intake, IV 30 Intake, Oral 400 Output, Urine 950 650 Patient 214 lb Weight Physical Exam General Appearance: Alert, Oriented X3, Cooperative, No Acute Distress Cardiovascular: Regular Rate, Normal S1, Normal S2 Lungs: scant wheezing and rhonchi, unchanged from yesterday Abdomen: Normal Bowel Sounds, Soft, No Tenderness Neurological: Normal Speech, Normal Tone, Sensation Intact Extremities: 1+ bilateral LE swelling Current Medications: Current Medications Sig/Rene Start time Last Medication Dose Route Stop Time Status Admin Acetaminophen 650 MG Q6P PRN 09/26 2144 AC PO Acetaminophen 1,000 MG Q6P PRN 09/26 2144 AC IV Albuterol Sulfate 3 ML TID 09/29 1400 AC 09/30 INH 2000 Amlodipine Besylate 10 MG DAILY 10/01 899 AC PO Amlodipine Besylate 5 MG ONCE ONE 09/30 914 DC 09/30 PO 09/30 0916 1216 Amlodipine Besylate 5 MG DAILY 09/29 1641 DC 09/30 PO 0752 Aspirin 81 MG DAILY 09/27 09 AC 09/30 PO 075 Atorvastatin Calcium 40 MG 1700 09/26 2200 AC 09/30 PO 1713 Enoxaparin Sodium 40 MG DAILY 09/27 09 AC 09/30 SC 0752 Furosemide 40 MG 7:30 AM, & 4:30 PM 09/27 07 AC 09/30 IV 1713 Guaifenesin 10 ML Q4P PRN 09/26 2145 AC PO Lisinopril 20 MG DAILY 10/01 0200 AC 10/01 PO 0219 Lisinopril 20 MG DAILY 09/27 09 DC 09/30 PO 075 Magnesium Oxide 400 MG BID 09/26 2345 AC 09/30 PO 2019 Magnesium Sulfate 1 GM ONCE ONE 09/30 0945 DC 09/30 Dextrose/Water 100 ML IV 09/30 1344 1213 Methylprednisolone 40 MG Q12 09/28 2100 AC 09/30 IV 2019 Last 24 Hrs of Lab/Ramon Results Last 24 Hrs of Labs/Mics: Laboratory Tests 10/01/17 0618: Anion Gap 5, Estimated GFR > 60, BUN/Creatinine Ratio 28.6 H, Magnesium 1.8, Tcd-H-Afznmnmxetm Pept 2160 H Orders ECHO Findings: Left Ventricle Normal global left ventricular size, wall thickness, systolic function with no obvious regional wall motion abnormalities. Moderate left ventricular dilatation. Left ventricular wall thickness increased. Mildly reduced global left ventricular systolic function. Mildly abnormal left ventricular ejection fraction estimated at 40-45%. Right Ventricle Right ventricle at upper limits of normal. Right Atrium Normal right atrial size. Left Atrium Mild to moderate left atrial dilatation. Mitral Valve Mitral valve thickened. Pysm-pt-cwohvesw mitral regurgitation. Aortic Valve Trileaflet aortic valve. Diffuse thickening (sclerosis) of the aortic valve cusps without reduced excursion. No aortic stenosis. No aortic regurgitation. Tricuspid Valve Tricuspid valve not well visualized, grossly normal. Mild tricuspid regurgitation. Right ventricular systolic pressure estimated at 36 mmHg. Pulmonic Valve Pulmonic valve not well visualized, grossly normal. Mild pulmonic regurgitation. Pericardium Normal pericardium. Small pericardial effusion. Great Vessels Aortic root and proximal ascending aorta not well visualized, grossly normal. CONCLUSIONS 1. Aortic sclerosis is present with no valvular stenosis or insufficiency. 2. Mitral leaflet thickening is present with mild to moderate mitral insufficiency and mild to moderate left atrial enlargement. 3. A very small pericardial effusion is present. 4. The left ventricular chamber is moderately enlarged with eccentric hypertrophy, global hypokinesia which is worse in the inferoposterior segments and an ejection fraction of approximately 45%. 5. Mild tricuspid and pulmonic insufficiency are present with no evidence of pulmonary hypertension. 6. This was a technically difficult examination. Assessment/Plan Assessment: Patient is a 59-year-old male with a PMH significant for HTN, asthma, COPD, significant smoking history who presented complaining of lower extremity swelling and shortness of breath. #Acute hypoxic respiratory failure Likely multifactorial with asthma/COPD exacerbation and decompensated heart failure. Echocardiogram shows diffuse LV hypokinesis with mildly decreased LVEF. Patient continues to desaturate when attempting to wean down from 5 L supplemental O2 -Continue IV Lasix -Continue TRC/nebs -Taper supplemental O2 as tolerated -Continue current dose of Solu-Medrol 40 mg every 12 hours given -Pulmonary consult placed, will follow-up recommendations -Cardiology recommendations appreciated #Hypertension -Lisinopril increased to 40 mg daily -Started amlodipine 10 mg daily given persistently elevated BP #Hypomagnesemia, resolved Diet: Heart healthy DVT prophylaxis: Lovenox, Alps CODE STATUS: Full code Problem List: 1. Troponin level elevated 2. COPD (chronic obstructive pulmonary disease) 3. Hypoxia 4. Asthma exacerbation 5. Congestive heart failure Pain Ratin Pain Location: none Pain Goal: Remain pain free Pain Plan: pain pathway Tomorrow's Labs & Rationales: Jami Garcia MD 10/01/17 1341: Attending MD Review Statement Attending Statement Attending MD Statement: examined this patient, discuss w/resident/PA/EP SPECIALIST, agreed w/resident/PA/EP SPECIALIST, reviewed EMR data (avail) Attending Assessment/Plan: 62M PMH HTN, HLD, COPD admitted with a month of exertional dyspnea now with shortness of breath at rest, found to be fluid overloaded with weakly positive troponin, started on Lasix and Solumedrol overnight with significant diuresis and clinical improvement. Diuresed well over the weekend with significant improvement of edema. Remains hypoxic requiring 5L NC. Asymptomatic. 1. Acute on chronic systolic CHF 2. Dyspnea at rest 3. Type 2 myocardial infarction Plan - Continue on telemetry - Continue Lasix at 40mg IV daily, monitor I/O, daily weights - Continue Solumedrol 40mg IV BID today, consider decrease to Prednisone tomorrow if oxygen can be titrated down - Pulmonary consult - Nebulizer treatments - Chest physiotherapy - Follow cardiology recommendations - Continue home medications - DVT PPx
[2017-10-01 11:25] VITALS: BP 150/96
[2017-10-01 14:39] VITALS: BP 142/90
--- NOTE | 2017-10-01 14:51 | PN- Cardiology ---
Subjective Subjective: The patient continues to complain of shortness of breath which is improving. He is diuresing well on Lasix. No chest pain. No palpitations. No diaphoresis. Objective Vital Signs and I&Os Vital Signs Date Time Temp Pulse Resp B/P B/P Pulse O2 O2 Flow FiO2 Mean Ox Delivery Rate 10/01 1439 98.0 87 20 142/90 94 Nasal 4.0L Cannula 10/01 1125 72 150/96 10/01 821 86 154/102 10/02 799 94 Nasal 5.0L Cannula 10/01 0752 96 Nasal 5.0L Cannula 10/01 599 97.9 86 18 154/102 94 Nasal 5.0L Cannula 10/01 0219 90 172/106 10/01 0016 90 172/106 10/01 0000 Nasal 4.0L Cannula 09/30 2230 96 162/110 09/30 2145 98.3 94 18 158/100 94 Nasal Cannula 09/30 2008 96 Nasal 5.0L Cannula Intake & Output 10/01 1600 10/01 0000 09/30 1600 09/30 0000 Intake Total 380 971 904 6680 Output Total 2400 597 329 2490 1800 Balance -2020 -950 -220 -775 -466 Intake, IV 30 14 Intake, Oral 380 451 923 5745 Output, Urine 2400 948 036 2097 1800 Patient 214 lb 219 lb Weight Weight Bed scale Measurement Method Physical Exam: Gen: NAD HEENT: normal Lungs: Bilateral rhonchi, normal resp. effort Heart: RRR, S1, S2, 2 out of 6 systolic murmur Abdomen: Soft, nontender, no masses Extremities: 2+ edema Neuro: Alert and oriented x 3, cranial nerves intact Current Medications: Current Medications Sig/Rene Start time Last Medication Dose Route Stop Time Status Admin Acetaminophen 650 MG Q6P PRN 09/26 2144 AC PO Acetaminophen 1,000 MG Q6P PRN 09/26 2144 AC IV Albuterol Sulfate 3 ML TID 09/29 1400 AC 10/01 INH 1351 Amlodipine Besylate 10 MG DAILY 10/01 899 AC 10/01 PO 0822 Aspirin 81 MG DAILY 09/27 899 AC 10/01 PO 0821 Atorvastatin Calcium 40 MG 1700 09/26 2200 AC 09/30 PO 1713 Enoxaparin Sodium 40 MG DAILY 09/27 899 AC 10/01 SC 0831 Furosemide 40 MG 7:30 AM, & 4:30 PM 09/27 0730 AC 10/01 IV 0822 Guaifenesin 10 ML Q4P PRN 09/26 2145 AC PO Lisinopril 20 MG DAILY 10/01 0200 AC 10/01 PO 0219 Lisinopril 20 MG DAILY 09/27 0900 DC 09/30 PO 0752 Magnesium Oxide 400 MG BID 09/26 2345 AC 10/01 PO 0821 Methylprednisolone 40 MG Q12 09/28 2100 AC 10/01 IV 0822 Results Last 48 Hrs of Labs/Mics: Laboratory Tests 10/01/17 0618: Anion Gap 5, Estimated GFR > 60, BUN/Creatinine Ratio 28.6 H, Magnesium 1.8, Etv-N-Bwvlionvyok Pept 2160 H 09/30/17 0626: Anion Gap 6, Estimated GFR > 60, BUN/Creatinine Ratio 25.7 H, Magnesium 1.8, CBC w Diff NO MAN DIFF REQ, RBC 4.22 L, MCV 98.3 H, MCH 31.0, MCHC 31.5 L, RDW 16.3 H, MPV 9.5, Gran % 92.0 H, Lymphocytes % 3.2 L, Monocytes % 4.8, Eosinophils % 0, Basophils % 0, Absolute Granulocytes 10.3 H, Absolute Lymphocytes 0.4 L, Absolute Monocytes 0.5, Absolute Eosinophils 0, Absolute Basophils 0 Assessment/Plan Assessment/Plan Assessment: 1. COPD exacerbation 2. Acute on chronic heart failure with reduced ejection fraction 3. Hypertension 4. Mild troponin elevation Plan: * Continue IV Lasix * Monitor input and output with daily weights * Increase lisinopril to 40 mrem daily for additional blood pressure control Continue telemetry? Yes
[2017-10-01 16:20] VITALS: BP 150/98
--- NOTE | 2017-10-01 19:35 | Cons- Pulmonary ---
General Information and HPI Consulting Request Date of Consult: 10/01/17 Requested By: Med team\ History of Present Illness: This is a gentleman with history of significant smoking, hypertension, previous bronchospasm, clinical evidence suggestive of end-stage lung disease, previous history suggestive of obstructive sleep apnea, clinical evidence suggestive of chronic hypercarbic respiratory failure which appears to be compensated, came in with lower extremity edema and fluid overload and congestive heart failure. Patient initially was also bringing up yellow-green sputum and his chest x-ray was suggestive of pulmonary edema. And this was aggressively treated. He continues to be hypoxemic hence this consult. Initially when he came in for his respiratory failure he was treated with BiPAP therapy. And since then he's been off his BiPAP. He has history of significant smoking, medical noncompliance due to lack of insurance. He has significant dyspnea. Constitutional: Reports: see HPI. EENTM: Reports: no symptoms. Cardiovascular: Reports: see HPI. Respiratory: Reports: see HPI. GI: Reports: see HPI. Genitourinary: Reports: no symptoms. Musculoskeletal: Reports: no symptoms. Skin: Reports: no symptoms. Neurological/Psychological: Reports: no symptoms. Hematologic/Endocrine: Reports: no symptoms. Immunologic/Allergic: Reports: no symptoms. Allergies/Medications Allergies: Coded Allergies: Penicillins (Intermediate, HIVES 07/26/16) Sulfa (Sulfonamide Antibiotics) (Intermediate, FACIAL SWELLING 07/26/16) codeine (Intermediate, HIVES 07/26/16) Home Med List: Amlodipine Besylate (Norvasc) 5 MG TABLET 1 TAB PO DAILY HTN Aspirin (Ecotrin*) 325 MG TABLET.DR 1 TAB PO DAILY HEART/BLOOD (Reported) Lisinopril 20 MG TABLET 1 TAB PO DAILY HTN Multivitamin (Multi-Day Vitamins) 1 EACH TABLET 1 TAB PO DAILY SUPPLEMENT ( Reported) Review of Systems Review of Systems Constitutional: Reports: see HPI. Past History Travel History Traveled to [place] past 21 day No Medical History Neurological: NONE EENT: NONE Cardiovascular: hypertension Respiratory: asthma Gastrointestinal: NONE Hepatic: NONE Renal: NONE Musculoskeletal: L LEG FX BULGING DISKS PROTRUDING DISKS DETERIORATING DISKS Psychiatric: STRESS Endocrine: NONE Blood Disorders: NONE Cancer(s): NONE CARE ANALYST/Reproductive: NONE Surgical History Surgical History: non-contributory Psychosocial History Where Do You Live? Home Services at Home: None Smoking Status: Former Smoker Exam & Diagnostic Data Last 24 Hrs of Vital Signs/I&O Vital Signs Date Time Temp Pulse Resp B/P B/P Pulse O2 O2 Flow FiO2 Mean Ox Delivery Rate 10/01 1621 92 150/98 10/01 1620 92 150/98 10/01 1600 Nasal 5.0L Cannula 10/01 1439 98.0 87 20 142/90 94 Nasal 4.0L Cannula 10/01 1125 72 150/96 10/01 0822 86 154/102 10/01 0800 94 Nasal 5.0L Cannula 10/01 0752 96 Nasal 5.0L Cannula 10/01 0600 97.9 86 18 154/102 94 Nasal 5.0L Cannula 10/01 0219 90 172/106 10/01 0016 90 172/106 10/01 0000 Nasal 4.0L Cannula 09/30 2230 96 162/110 09/30 2145 98.3 94 18 158/100 94 Nasal Cannula 09/30 2009 96 Nasal 5.0L Cannula Intake & Output 10/01 1600 10/01 0800 05 0000 Intake Total 600 380 Output Total 2000 2400 950 Balance -1400 -2020 -950 Intake, Oral 600 380 Output, Urine 2000 2400 950 Patient 214 lb Weight Last 48 Hrs of Labs/Ramon: Laboratory Tests 10/01/17 0618: Anion Gap 5, Estimated GFR > 60, BUN/Creatinine Ratio 28.6 H, Magnesium 1.8, [id number]-[id number] Pept 2160 H 09/30/17 0626: Anion Gap 6, Estimated GFR > 60, BUN/Creatinine Ratio 25.7 H, Magnesium 1.8, CBC w Diff NO MAN DIFF REQ, RBC 4.22 L, MCV 98.3 H, MCH 31.0, MCHC 31.5 L, RDW 16.3 H, MPV 9.5, Gran % 92.0 H, Lymphocytes % 3.2 L, Monocytes % 4.8, Eosinophils % 0, Basophils % 0, Absolute Granulocytes 10.3 H, Absolute Lymphocytes 0.4 L, Absolute Monocytes 0.5, Absolute Eosinophils 0, Absolute Basophils 0 Assessment/Plan Impression/Plan: General Appearance Alert, Oriented X3, Cooperative, No Acute Distress Skin No Rashes Skin Temp/Moisture Exam: Warm/Dry HEENT Atraumatic, PERRLA, EOMI, Mucous Membr. moist/pink Neck mild JVD Cardiovascular Regular Rate, Normal S1, Normal S2 Lungs bilateral crackles and prolonged expiratory wheezing Abdomen Normal Bowel Sounds, Soft, No Tenderness Neurological Normal Speech, Sensation Intact, Cranial Nerves 3-12 NL Extremities No Clubbing, No Cyanosis, Normal Pulses, No Tenderness/Swelling, bilateral lower extremity pitting edema 1+ Vascular Normal Pulses, Pulses Symmetrical ECHO CONCLUSIONS 1. Aortic sclerosis is present with no valvular stenosis or insufficiency. 2. Mitral leaflet thickening is present with mild to moderate mitral insufficiency and mild to moderate left atrial enlargement. 3. A very small pericardial effusion is present. 4. The left ventricular chamber is moderately enlarged with eccentric hypertrophy, global hypokinesia which is worse in the inferoposterior segments and an ejection fraction of approximately 45%. 5. Mild tricuspid and pulmonic insufficiency are present with no evidence of pulmonary hypertension. 6. This was a technically difficult examination. Chest x-ray reviewed IMPRESSION: 1. Cardiomegaly and mild central vascular congestion again noted. 2. Chronic obstructive lung disease. 3. Trace bilateral pleural effusions and associated bibasilar atelectatic changes, similar to the previous exam. No superimposed evolving pneumonia noted. ABG reviewed which showed significant hypercarbia which appears to be chronic which appears to be well compensated IMPRESSION This is a gentleman with history of significant smoking in the past, clinical evidence suggestive of significant obstructive lung disease, chronic hypercarbia , recent weight gain of 30 pounds with significant aggressive diuresis since he has been admitted, now has ongoing hypoxemia and hypercarbia. Issues include Acute on chronic hypoxemic and hypercarbic respiratory failure which seems to have improved after significant diuresis however continues to be hypoxemic and hypercarbic. Significant COPD by clinical exam with hypercarbia. At this time still continues to be mild wheezing. Ischemic cardiomyopathy with low ejection fraction and wall motion abnormality with biventricular right more than left heart failure Probable obstructive sleep apnea which is also contributing to hypercarbia No clinical hypothyroidism last TSH is normal RECOMMENDATION Continue oxygen. I suspect that he would need long-term oxygen therapy Continue this inhaler therapy switch it to DuoNeb 3 times a day [id number] Continue aggressive diuresis Keep his potassium more than 4 If his bicarbonate continues to rise tomorrow he can give one dose of Diamox 500 by mouth incident Lasix Switch him to by mouth prednisone 50 mg daily and slowly wean off in 10 days Ask respiratory to do bedside spirometry to evaluate his FEV1 Patient would need outpatient sleep study Patient would require a CT scan of the chest sometime in the future at this time he wishes to hold off. No clinical evidence suggestive of venous thromboembolism. Echo did not show severe pulmonary hypertension however I do suspect that he has cor pulmonale with chronic lung disease as well. Consult Acknowledgment - Thank you for your consult request.
[2017-10-01 23:16] VITALS: BP 150/104
[2017-10-02 02:25] VITALS: BP 170/110
[2017-10-02 07:02] VITALS: BP 166/100
--- NOTE | 2017-10-02 07:23 | PN- Housestaff ---
Joshua SHAFFER,Yordy 10/02/1722: Subjective Follow-up For: HTN, type II [place], COPD/asthma exacerbation Tele-Events Since Last Visit: Sinus rhythm with HR [id number] Subjective: Patient was seen and examined at bedside. He is resting comfortably. He had no acute events overnight. He has complaints, denies any shortness of breath at rest or on exertion, however attempts to wean off of supplemental O2 successful. His lower extremity edema continues to improve. He denies any chest pain, chest discomfort, palpitations, nausea, vomiting, fever, chills. Review of Systems Constitutional: Reports: see HPI. Objective Last 24 Hrs of Vital Signs/I&O Vital Signs Date Time Temp Pulse Resp B/P B/P Pulse O2 O2 Flow FiO2 Mean Ox Delivery Rate 10/02 701 98.0 89 20 166/100 95 Nasal 4.0L Cannula 10/02 0302 90 170/110 10/02 0225 170/110 10/02 0000 Nasal 5.0L Cannula 10/01 2316 97.8 87 20 150/104 97 Nasal 4.0L Cannula 10/01 2152 97 Nasal 4.0L Cannula 10/01 1621 92 150/98 10/01 1620 92 150/98 /08 1600 Nasal 5.0L Cannula 10/01 1439 98.0 87 20 142/90 94 Nasal 4.0L Cannula 10/01 1125 72 150/96 /08 0822 86 154/102 /08 0800 94 Nasal 5.0L Cannula 10/01 0752 96 Nasal 5.0L Cannula Intake & Output 10/02 0800 / 0000 10/01 1600 Intake Total 120 865 600 Output Total 1700 2075 1999 Balance -1580 -1210 -1400 Intake, IV 25 Intake, Oral 120 840 600 Output, Urine 1700 5 1999 Patient 207 lb Weight Physical Exam General Appearance: Alert, Oriented X3, Cooperative, No Acute Distress Cardiovascular: Regular Rate, Normal S1, Normal S2, systolic murmur Lungs: scant rhonchi and wheezing Abdomen: Normal Bowel Sounds, Soft, No Tenderness Neurological: Normal Speech, Normal Tone, Sensation Intact Extremities: trace bilateral LE wheezing Current Medications: Current Medications Sig/Rene Start time Last Medication Dose Route Stop Time Status Admin Acetaminophen 650 MG .STK-MED ONE 10/02 2215 DC PO 05/08 2217 Acetaminophen 650 MG Q6P PRN 09/26 2145 AC 10/01 PO 2219 Acetaminophen 1,000 MG Q6P PRN 09/26 2145 AC IV Albuterol Sulfate 3 ML TID 10/01 2100 AC INH Albuterol Sulfate 3 ML TID 09/29 1400 AC 10/01 INH 2151 Amlodipine Besylate 10 MG DAILY 10/01 09 AC 10/02 PO 0302 Aspirin 81 MG DAILY 09/27 09 AC 10/01 PO 0821 Atorvastatin Calcium 40 MG 1700 09/26 2200 AC 10/01 PO 1621 Enoxaparin Sodium 40 MG DAILY 09/27 899 AC 10/01 SC 0831 Furosemide 40 MG 7:30 AM, & 4:30 PM 09/27 0730 AC 10/02 IV 0655 Guaifenesin 10 ML Q4P PRN 09/26 214 AC PO Ipratropium [place] 2.5 ML TID 10/01 2100 AC INH Lisinopril 40 MG DAILY 10/02 899 AC PO Lisinopril 20 MG ONCE ONE 10/01 1615 DC 10/01 PO 10/01 1616 1621 Lisinopril 20 MG DAILY 10/01 0200 DC 10/01 PO 0219 Magnesium Oxide 400 MG BID 09/26 2345 AC 10/01 PO 2043 Methylprednisolone 40 MG Q12 09/28 2099 DC 10/01 IV 10/01 2300 2043 Prednisone 50 MG DAILY 10/02 899 AC PO Assessment/Plan Assessment: Patient is a 59-year-old male with a PMH significant for HTN, asthma, COPD, significant smoking history who presented complaining of lower extremity swelling and shortness of breath. #Acute hypoxic respiratory failure Likely multifactorial with asthma/COPD exacerbation and decompensated heart failure. Fluid overload appears to be improving with aggressive diuresis. Patient continues to have wheezing on examination. Will likely need supplemental O2 as an outpatient. -Continue IV Lasix -Continue TRC/nebs -Taper supplemental O2 as tolerated -Started on prednisone 50 mg daily, will taper in the coming days -Started on ipratropium and albuterol inhaler 3 times a day -pulmonology recommendations appreciated, will follow-up results of bedside spirometry #Hypertension -continue Lisinopril 40 mg daily -continue amlodipine 10 mg daily given persistently elevated BP #Hypomagnesemia, resolved Diet: Heart healthy DVT prophylaxis: Lovenox, Alps CODE STATUS: Full code Problem List: 1. Troponin level elevated 2. COPD (chronic obstructive pulmonary disease) 3. Asthma exacerbation 4. Acute CHF (congestive heart failure) 5. Hypoxia Pain Ratin Pain Location: none Pain Goal: Remain pain free Pain Plan: pain pathway Tomorrow's Labs & Rationales: easton Rasmussen MD,Manolomc 10/02/17 1119: Attending MD Review Statement Attending Statement Attending MD Statement: examined this patient, discuss w/resident/PA/PRESSING DEPARTMENT SUPERVISOR, agreed w/resident/PA/PRESSING DEPARTMENT SUPERVISOR, reviewed EMR data (avail) Attending Assessment/Plan: 62M PMH HTN, HLD, COPD admitted with a month of exertional dyspnea now with shortness of breath at rest, found to be fluid overloaded with weakly positive troponin, started on Lasix and Solumedrol overnight with significant diuresis and clinical improvement. Edema is resolved. Remains hypoxic requiring 4L NC. Asymptomatic. 1. Acute on chronic systolic CHF 2. Dyspnea at rest 3. Type 2 myocardial infarction Plan - Continue on telemetry - Continue Lasix at 40mg IV daily, monitor I/O, daily weights - Prednisone taper - Pulmonary consult - Nebulizer treatments - Chest physiotherapy - Follow cardiology recommendations - Continue home medications - DVT PPx - Anticipated discharge tomorrow or Saturday, likely on home oxygen, pending improvement in oxygenation
--- NOTE | 2017-10-02 12:39 | PN- Cardiology ---
Subjective Subjective: The patient is doing about the same. Some coughing. Mild dyspnea. Blood pressure slightly improved today. Objective Vital Signs and I&Os Vital Signs Date Time Temp Pulse Resp B/P B/P Pulse O2 O2 Flow FiO2 Mean Ox Delivery Rate 10/02 926 94 Nasal 4.0L Cannula 10/02 837 93 Nasal 4.0L Cannula 10/03 0712 158/86 10/02 0702 98.0 89 20 166/100 95 Nasal 4.0L Cannula 10/02 0302 90 170/110 10/02 0225 170/110 10/02 0000 Nasal 5.0L Cannula 10/01 2316 97.8 87 20 150/104 97 Nasal 4.0L Cannula 10/01 2152 97 Nasal 4.0L Cannula 10/01 1621 92 150/98 10/01 1620 92 150/98 10/01 1600 Nasal 5.0L Cannula 10/01 1439 98.0 87 20 142/90 94 Nasal 4.0L Cannula Intake & Output 10/02 1600 10/02 0800 10/02 0000 10/01 1600 10/01 0800 10/01 0000 Intake Total 120 865 600 380 Output Total 1700 2075 1999 2400 950 Balance -1580 -1210 -1400 -2020 -950 Intake, IV 25 Intake, Oral 120 840 600 380 Output, Urine 0 2074 1999 2400 950 Patient 207 lb 214 lb Weight Physical Exam: General Appearance: well developed/nourished, alert, awake, oriented Head: normal HEENT: Normal Neck: supple, JVP normal, carotid upstrokes normal bilaterally, no masses or thyromegaly Respiratory: chest non-tender, clear to auscultation and percussion bilaterally Cardiovascular: regular rate/rhythm, normal S1, S2, 1-2/6 systolic murmur Abdomen: normal bowel sounds, soft, non-tender Extremities: normal inspection, no edema Vascular: Pulses are 2+ and equal bilaterally Neurologic: Grossly normal/nonfocal Current Medications: Current Medications Sig/Rene Start time Last Medication Dose Route Stop Time Status Admin Acetaminophen 650 MG .STK-MED ONE 10/02 2215 DC PO 10/01 2216 Acetaminophen 650 MG Q6P PRN 09/26 2144 AC 10/01 PO 2218 Acetaminophen 1,000 MG Q6P PRN 09/26 2144 AC IV Albuterol Sulfate 3 ML TID 05/08 2100 DC INH Albuterol Sulfate 3 ML TID 09/29 1400 AC 10/02 INH 0835 Amlodipine Besylate 10 MG DAILY 10/01 09 AC 10/02 PO 0302 Aspirin 81 MG DAILY 09/27 09 AC 10/02 PO 0812 Atorvastatin Calcium 40 MG 1700 09/26 2200 AC 10/01 PO 1621 Enoxaparin Sodium 40 MG DAILY 09/27 899 AC 10/02 SC 0811 Furosemide 40 MG 7:30 AM, & 4:30 PM 09/27 0730 AC 10/02 IV 0655 Guaifenesin 10 ML Q4P PRN 09/26 2145 AC PO Ipratropium [place] 2.5 ML TID 10/01 2100 AC 10/02 INH 0835 Lisinopril 40 MG DAILY 10/02 899 AC 10/02 PO 0812 Lisinopril 20 MG ONCE ONE 10/01 1615 DC 10/01 PO 10/01 1616 1621 Lisinopril 20 MG DAILY 10/01 0200 DC 10/01 PO 0219 Magnesium Oxide 400 MG BID 09/26 2345 AC 10/02 PO 0811 Methylprednisolone 40 MG Q12 09/28 2100 DC 10/01 IV 10/01 2300 2043 Prednisone 50 MG DAILY 10/02 899 AC 10/02 PO 0811 Results Last 48 Hrs of Labs/Mics: Laboratory Tests 10/01/17 0618: Anion Gap 5, Estimated GFR > 60, BUN/Creatinine Ratio 28.6 H, Magnesium 1.8, [id number] Pept 2160 H Assessment/Plan Assessment/Plan Assessment: 1. COPD exacerbation 2. Acute on chronic heart failure with reduced ejection fraction 3. Hypertension 4. Mild troponin elevation Plan: -Continue Lasix with monitoring of intakes, outputs, daily weights -Follow-up labs pending -Continue lisinopril 40 mg daily for now. Continue amlodipine. -If necessary, can consider adding low-dose carvedilol at 3.125 mg twice daily for improved blood pressure control, cardio myopathy, etc. Continue telemetry? No
--- NOTE | 2017-10-02 13:47 | PN- Pulmonary ---
Subjective HPI/Critical Care Issues: The patient is doing about the same. Some coughing. Mild dyspnea. Blood pressure slightly improved today. Objective Current Medications: Current Medications Sig/Rene Start time Last Medication Dose Route Stop Time Status Admin Acetaminophen 650 MG .STK-MED ONE 10/02 2215 DC PO 10/01 221 Acetaminophen 650 MG Q6P PRN 09/26 2145 AC 10/01 PO 2219 Acetaminophen 1,000 MG Q6P PRN 09/26 2144 AC IV Albuterol Sulfate 3 ML TID 10/01 2099 DC INH Albuterol Sulfate 3 ML TID 09/29 1400 AC 10/02 INH 0835 Amlodipine Besylate 10 MG DAILY 10/01 899 AC 10/02 PO 0302 Aspirin 81 MG DAILY 09/27 899 AC 10/02 PO 0812 Atorvastatin Calcium 40 MG 1700 09/26 2200 AC 10/01 PO 1621 Enoxaparin Sodium 40 MG DAILY 09/27 899 AC 10/02 SC 0811 Furosemide 40 MG 7:30 AM, & 4:30 PM 09/27 0730 AC 10/02 IV 0655 Guaifenesin 10 ML Q4P PRN 09/26 214 AC PO Ipratropium [place] 2.5 ML TID 10/01 2100 AC 10/02 INH 0835 Lisinopril 40 MG DAILY 10/02 899 AC 10/02 PO 0812 Lisinopril 20 MG ONCE ONE 10/01 161 DC 10/01 PO 10/01 1616 1621 Lisinopril 20 MG DAILY 10/01 0200 DC 10/01 PO 0219 Magnesium Oxide 400 MG BID 09/26 2345 AC 10/02 PO 0811 Methylprednisolone 40 MG Q12 09/28 2099 DC 10/01 IV 10/01 2300 2043 Prednisone 50 MG DAILY 10/02 899 AC 10/02 PO 0811 Vital Signs & I&O Last 24 Hrs of Vitals and I&O: Vital Signs Date Time Temp Pulse Resp B/P B/P Pulse O2 O2 Flow FiO2 Mean Ox Delivery Rate 10/02 926 94 Nasal 4.0L Cannula 10/02 837 93 Nasal 4.0L Cannula 10/03 811 158/86 10/02 0702 98.0 89 20 166/100 95 Nasal 4.0L Cannula 10/02 0302 90 170/110 10/02 0225 170/110 10/02 0000 Nasal 5.0L Cannula 10/01 2316 97.8 87 20 150/104 97 Nasal 4.0L Cannula 10/01 2152 97 Nasal 4.0L Cannula 10/01 1621 92 150/98 10/01 1620 92 150/98 10/01 1600 Nasal 5.0L Cannula 10/01 1439 98.0 87 20 142/90 94 Nasal 4.0L Cannula Intake & Output 10/02 1600 10/02 0800 05 0000 Intake Total 120 865 Output Total 1700 2074 Balance -1580 -1210 Intake, IV 25 Intake, Oral 120 840 Output, Urine 1700 2074 Patient 207 lb Weight Impression/Plan Impression/Plan Impression/Plan: General Appearance Alert, Oriented X3, Cooperative, No Acute Distress Skin No Rashes Skin Temp/Moisture Exam: Warm/Dry HEENT Atraumatic, PERRLA, EOMI, Mucous Membr. moist/pink Neck mild JVD Cardiovascular Regular Rate, Normal S1, Normal S2 Lungs bilateral crackles and prolonged expiratory wheezing Abdomen Normal Bowel Sounds, Soft, No Tenderness Neurological Normal Speech, Sensation Intact, Cranial Nerves 3-12 NL Extremities No Clubbing, No Cyanosis, Normal Pulses, No Tenderness/Swelling, bilateral lower extremity pitting edema 1+ Vascular Normal Pulses, Pulses Symmetrical ECHO CONCLUSIONS 1. Aortic sclerosis is present with no valvular stenosis or insufficiency. 2. Mitral leaflet thickening is present with mild to moderate mitral insufficiency and mild to moderate left atrial enlargement. 3. A very small pericardial effusion is present. 4. The left ventricular chamber is moderately enlarged with eccentric hypertrophy, global hypokinesia which is worse in the inferoposterior segments and an ejection fraction of approximately 45%. 5. Mild tricuspid and pulmonic insufficiency are present with no evidence of pulmonary hypertension. 6. This was a technically difficult examination. Chest x-ray reviewed IMPRESSION: 1. Cardiomegaly and mild central vascular congestion again noted. 2. Chronic obstructive lung disease. 3. Trace bilateral pleural effusions and associated bibasilar atelectatic changes, similar to the previous exam. No superimposed evolving pneumonia noted. ABG reviewed which showed significant hypercarbia which appears to be chronic which appears to be well compensated IMPRESSION This is a gentleman with history of significant smoking in the past, clinical evidence suggestive of significant obstructive lung disease, chronic hypercarbia , recent weight gain of 30 pounds with significant aggressive diuresis since he has been admitted, now has ongoing hypoxemia and hypercarbia. Issues include * Slowly resolving Acute on chronic hypoxemic and hypercarbic respiratory failure which seems to have improved after significant diuresis however continues to be hypoxemic and hypercarbic. * Significant COPD by clinical exam with hypercarbia. At this time still continues to be mild wheezing. Consistant with mild copde * Ischemic cardiomyopathy with low ejection fraction and wall motion abnormality with biventricular right more than left heart failure * Probable obstructive sleep apnea which is also contributing to hypercarbia * No clinical hypothyroidism last TSH is normal * Unlikely vte, ultrasound LE neg and echo as noted above RECOMMENDATION Continue oxygen. I suspect that he would need long-term oxygen therapy Continue this inhaler therapy switch it to DuoNeb 3 times a day [id number] Continue aggressive diuresis Keep his potassium more than 4 Give one dose of diamox this pm instead of lasix Prednisone 50 mg daily and slowly wean off in 9 days Ask respiratory to do bedside spirometry to evaluate his FEV1 Patient would need outpatient sleep study Patient would require a CT scan of the chest sometime in the future at this time he wishes to hold off. No clinical evidence suggestive of venous thromboembolism. Echo did not show severe pulmonary hypertension however I do suspect that he has cor pulmonale with chronic lung disease as well.
[2017-10-02 14:23] VITALS: BP 122/78
[2017-10-02 20:54] VITALS: BP 184/90
[2017-10-02 21:49] VITALS: BP 164/110
[2017-10-03 06:51] VITALS: BP 152/100
--- NOTE | 2017-10-03 07:21 | PN- Housestaff ---
Joshua SHAFFER,Yordy 10/03/17 0720: Subjective Follow-up For: Asthma/COPD exacerbation Decompensated systolic heart failure Subjective: Patient was seen and examined at bedside. He is resting comfortably. He had no acute events overnight. He was successfully weaned down to 3 L O2 nasal cannula. He continues to deny any episodes of shortness of breath, and is able to ambulate without issue. He denies any chest pain, palpitations, nausea, vomiting, fever, chills. He is concerned about affording his medications and losing his job if he is to be discharged on supplemental oxygen. Review of Systems Constitutional: Reports: see HPI. Objective Last 24 Hrs of Vital Signs/I&O Vital Signs Date Time Temp Pulse Resp B/P B/P Pulse O2 O2 Flow FiO2 Mean Ox Delivery Rate 10/03 650 98.1 84 20 152/100 97 Nasal Cannula 10/03 0549 154/100 10/02 2330 97.9 90 16 94 Nasal Cannula 10/02 2148 164/110 10/022 164/110 10/02 2054 92 184/90 10/02 1954 96 Nasal 4.0L Cannula 10/02 1600 Nasal 4.0L Cannula 10/02 1423 97.8 87 20 122/78 95 Nasal 4.0L Cannula 10/02 1423 94 Nasal 4.0L Cannula 10/02 0927 94 Nasal 4.0L Cannula 10/02 0838 93 Nasal 4.0L Cannula 10/02 0812 158/86 Intake & Output 10/03 0800 10/03 0000 10/02 1600 Intake Total 200 200 400 Output Total 5261 107 0480 Balance -1300 -700 -1400 Intake, Oral 200 200 400 Output, Urine 1566 167 5339 Patient 205 lb Weight Weight Bed scale Measurement Method Physical Exam General Appearance: Alert, Oriented X3, Cooperative, No Acute Distress Cardiovascular: Regular Rate, Normal S1, Normal S2, systolic murmur Lungs: scant expiratory wheezing and rhonchi Abdomen: Normal Bowel Sounds, Soft, No Tenderness, No Hepatospenomegaly Neurological: Normal Speech, Normal Tone, Sensation Intact Extremities: tracel distal LE edema bilaterally Current Medications: Current Medications Sig/Rene Start time Last Medication Dose Route Stop Time Status Admin Acetaminophen 650 MG Q6P PRN 09/26 2144 AC 10/01 PO 2219 Acetaminophen 1,000 MG Q6P PRN 05/03 2145 AC IV Acetazolamide 250 MG ONCE ONE 10/02 1630 DC 10/02 PO 10/02 1631 1706 Albuterol Sulfate 3 ML TID 10/01 2099 DC INH Albuterol Sulfate 3 ML TID 09/29 1400 AC 10/02 INH 1953 Amlodipine Besylate 10 MG DAILY 10/01 899 AC 10/03 PO 0549 Aspirin 81 MG DAILY 09/27 899 AC 10/02 PO 0812 Atorvastatin Calcium 40 MG 1700 09/26 2200 AC 10/02 PO 1706 Carvedilol 3.125 MG BID 10/02 2099 AC 10/02 PO 214 Enoxaparin Sodium 40 MG DAILY 09/27 899 AC 10/02 SC 0811 Furosemide 40 MG 7:30 AM, & 4:30 PM 09/27 07 DC 10/02 IV 0655 Guaifenesin 10 ML Q4P PRN 09/26 2144 AC PO Ipratropium [place] 2.5 ML TID 10/01 2099 AC 10/02 INH 195 Lisinopril 40 MG DAILY 10/02 899 AC 10/02 PO 0812 Magnesium Oxide 400 MG BID 09/26 2345 AC 10/02 PO 2041 Prednisone 50 MG DAILY 10/02 899 AC 10/02 PO 0811 Last 24 Hrs of Lab/Ramon Results Last 24 Hrs of Labs/Mics: Laboratory Tests 10/03/17 0645: Anion Gap 6, Estimated GFR > 60, BUN/Creatinine Ratio 23.8, Magnesium 1.8 Assessment/Plan Assessment: Patient is a 59-year-old male with a PMH significant for HTN, asthma, COPD, significant smoking history who presented complaining of lower extremity swelling and shortness of breath. #Acute hypoxic respiratory failure Likely multifactorial with asthma/COPD exacerbation and decompensated heart failure. Fluid overload continues to improve with diuresis. Patient continues to have wheezing on examination however this is improving. Will likely need supplemental O2 as an outpatient. The spirometry showed severe COPD. -We will convert to p.o. Lasix tomorrow -Continue TRC/nebs -Taper supplemental O2 as tolerated, down to 3 L today, will continue to taper as tolerated -Started on prednisone 50 mg daily, will taper in the coming days -Started on ipratropium and albuterol inhaler 3 times a day #Hypertension -continue Lisinopril 40 mg daily -continue amlodipine 10 mg daily -Started carvedilol 3.125 mg twice daily given persistently elevated BP #Hypomagnesemia, resolved social work to see the patient today to discuss financial issues involving affording medications. Diet: Heart healthy DVT prophylaxis: Lovenox, Alps CODE STATUS: Full code Problem List: 1. Troponin level elevated 2. COPD (chronic obstructive pulmonary disease) 3. Hypoxia 4. Congestive heart failure 5. Acute CHF (congestive heart failure) Pain Ratin Pain Location: none Pain Goal: Remain pain free Pain Plan: pain pathway Tomorrow's Labs & Rationales: none Jami Rasmussen MD 10/03/17 1024: Attending MD Review Statement Attending Statement Attending MD Statement: examined this patient, discuss w/resident/PA/NURSING PROGRAM CHAIR, agreed w/resident/PA/NURSING PROGRAM CHAIR, reviewed EMR data (avail) Attending Assessment/Plan: 62M PMH HTN, HLD, COPD admitted with a month of exertional dyspnea now with shortness of breath at rest, found to be fluid overloaded with weakly positive troponin, started on Lasix and Solumedrol overnight with significant diuresis and clinical improvement. Edema is resolved. Remains hypoxic requiring 3L NC. Asymptomatic. 1. Acute on chronic systolic CHF 2. Dyspnea at rest 3. Type 2 myocardial infarction Plan - Continue on telemetry - Prednisone taper - Pulmonary consult - Nebulizer treatments - Chest physiotherapy - Follow cardiology recommendations - Continue home medications - DVT PPx - Anticipated discharge tomorrow, possibly with home oxygen, on current medications and PO Lasix
[2017-10-03 15:12] VITALS: BP 140/92
--- NOTE | 2017-10-03 15:38 | PN- Cardiology ---
Subjective Subjective: Patient seems to be doing well. Respiratory status unchanged. Blood pressure slightly better. Objective Vital Signs and I&Os Vital Signs Date Time Temp Pulse Resp B/P B/P Pulse O2 O2 Flow FiO2 Mean Ox Delivery Rate 10/03 1512 98.4 87 20 140/92 91 Room Air 10/03 0921 97 Nasal 3.0L Cannula 10/03 0841 150/80 10/03 0841 150/84 10/03 0815 94 Nasal 3.0L Cannula 10/03 0651 98.1 84 20 152/100 97 Nasal Cannula 10/03 0549 154/100 10/02 2330 97.9 90 16 94 Nasal Cannula 10/02 2148 164/110 10/02 2142 164/110 10/02 2054 92 184/90 10/02 1953 96 Nasal 4.0L Cannula 10/02 1600 Nasal 4.0L Cannula Intake & Output 10/03 1600 10/03 0800 10/03 0000 10/02 1600 10/02 0800 10/02 0000 Intake Total 400 200 200 400 120 865 Output Total 850 4902 084 3251 1700 2074 Balance -450 -1300 -700 -1400 -1580 -1210 Intake, IV 25 Intake, Oral 400 200 200 400 120 840 Output, Urine 850 6010 867 6524 1700 2075 Patient 205 lb 207 lb Weight Weight Bed scale Measurement Method Current Medications: Current Medications Sig/Rene Start time Last Medication Dose Route Stop Time Status Admin Acetaminophen 650 MG Q6P PRN 09/26 2144 AC 10/01 PO 2219 Acetaminophen 1,000 MG Q6P PRN 09/26 214 AC IV Acetazolamide 250 MG ONCE ONE 10/02 1630 DC 10/02 PO 10/02 1631 1706 Albuterol Sulfate 3 ML TID 09/29 1400 AC 10/03 INH 1346 Amlodipine Besylate 10 MG DAILY 10/01 899 AC 10/03 PO 0549 Aspirin 81 MG DAILY 09/27 899 AC 10/03 PO 0840 Atorvastatin Calcium 40 MG 1700 09/26 2200 AC 10/02 PO 1706 Carvedilol 3.125 MG BID 10/02 2100 AC 10/03 PO 0841 Enoxaparin Sodium 40 MG DAILY 09/27 899 AC 10/03 SC 0840 Furosemide 40 MG ONE ONE 10/03 1400 DC 10/03 PO 10/03 1401 1426 Furosemide 40 MG 7:30 AM, & 4:30 PM 09/27 0730 DC 10/02 IV 0655 Guaifenesin 10 ML Q4P PRN 09/26 2145 AC PO Ipratropium [place] 2.5 ML TID 10/01 2100 AC 10/03 INH 1347 Lisinopril 40 MG DAILY 10/02 899 AC 10/03 PO 0841 Magnesium Oxide 400 MG BID 09/26 2345 AC 10/03 PO 0840 Prednisone 50 MG DAILY 10/02 899 AC 10/03 PO 0840 Results Last 48 Hrs of Labs/Mics: Laboratory Tests 10/03/17 0645: Anion Gap 6, Estimated GFR > 60, BUN/Creatinine Ratio 23.8, Magnesium 1.8 Assessment/Plan Assessment/Plan Assessment: 1. COPD exacerbation 2. Acute on chronic heart failure with reduced ejection fraction 3. Hypertension 4. Mild troponin elevation Plan: -Continue Lasix with monitoring of intakes, outputs, daily weights -Follow-up labs pending -Continue lisinopril 40 mg daily for now. Continue amlodipine. -Blood pressure slightly improved today, though still not optimal. Continue to monitor. If necessary, increase carvedilol to 6.25 mg twice daily. -I discussed the possibility of the chest CT with the patient. If the medical team still desires a chest CT, the patient is now agreeable to performing it. Continue telemetry? No
[2017-10-03 20:30] VITALS: BP 162/100
[2017-10-04 02:31] VITALS: BP 174/100
[2017-10-04 07:24] VITALS: BP 158/100
[2017-10-04] MEDS ORDERED: ALBUTEROL2.5 MG/3 M INH ×2 (08:01→14:22)
[2017-10-04] MEDS ORDERED: CARVEDILOL3.125 M1 PO (08:01)
[2017-10-04] MEDS ORDERED: ASPIRIN81 M4 PO ×3 (08:01→14:28)
[2017-10-04] MEDS ORDERED: ATORVASTATIN CA40 M1 PO ×3 (08:01→14:28)
[2017-10-04] MEDS ORDERED: IPRATROPIU0.2 MG/1 M INH ×2 (08:01→14:22)
[2017-10-04] MEDS ORDERED: NORVASC10 M1 PO ×3 (08:01→14:28)
[2017-10-04] MEDS ORDERED: LISINOPRIL20 M1 PO ×3 (08:01→14:28)
--- NOTE | 2017-10-04 08:18 | PN- Housestaff ---
Joshua SHAFFER,Yordy 10/04/1717: Subjective Follow-up For: Decompensated heart failure COPD/asthma exacerbation Subjective: Patient was seen and examined at bedside. He is resting comfortably. He had no acute events overnight. He is able to ambulate and not become short of breath, he also currently denies any chest pain, palpitations, lightheadedness, nausea, vomiting, fever, chills. Patient's only complaint currently issues with his insurance and being able to afford this hospitalization and his medications Review of Systems Constitutional: Reports: see HPI. Objective Last 24 Hrs of Vital Signs/I&O Vital Signs Date Time Temp Pulse Resp B/P B/P Pulse O2 O2 Flow FiO2 Mean Ox Delivery Rate 10/04 08 152/92 10/04 0759 152/96 10/04 0724 97.5 82 18 158/100 94 Nasal 2.0L Cannula 10/04 0652 86 158/110 10/04 0231 174/100 10/03 2030 98.1 89 16 162/100 93 Nasal 2.0L Cannula 10/03 2028 93 Nasal 2.0L Cannula 10/04 2027 89 162/100 10/03 1949 93 Nasal 2.0L Cannula 10/03 1600 Nasal 3.0L Cannula 10/03 1512 98.4 87 20 140/92 91 Room Air 10/03 0921 97 Nasal 3.0L Cannula 10/03 0841 150/80 10/03 0841 150/84 Intake & Output 10/04 1600 10/04 0800 10/04 0000 Intake Total 120 Output Total 1100 1800 Balance -1100 -1680 Intake, Oral 120 Output, Urine 1100 1800 Patient 201 lb Weight Weight Bed scale Measurement Method Physical Exam General Appearance: Alert, Oriented X3, Cooperative, No Acute Distress Cardiovascular: Regular Rate, Normal S1, Normal S2, systolic murmur Lungs: scant expiratory wheezing Abdomen: Normal Bowel Sounds, Soft, No Tenderness Neurological: Normal Speech, Normal Tone, Sensation Intact Extremities: 1+ pitting edema of the distal lower extremities Current Medications: Current Medications Sig/Rene Start time Last Medication Dose Route Stop Time Status Admin Acetaminophen 650 MG Q6P PRN 09/26 2144 AC 10/01 PO 2219 Acetaminophen 1,000 MG Q6P PRN 09/26 2144 AC IV Albuterol Sulfate 3 ML TID 09/29 1400 AC 10/03 INH 194 Amlodipine Besylate 10 MG DAILY 10/01 899 AC 10/04 PO 0652 Aspirin 81 MG DAILY 09/27 09 AC 10/04 PO 0759 Atorvastatin Calcium 40 MG 1700 09/26 2200 AC 10/03 PO 1617 Carvedilol 6.25 MG BID 10/04 2100 AC PO Carvedilol 6.25 MG BID 10/04 09 DC PO Carvedilol 3.125 MG ONCE ONE 10/05 0715 DC PO 10/04 0816 Carvedilol 3.125 MG BID 10/02 2100 DC 10/04 PO 0759 Enoxaparin Sodium 40 MG DAILY 09/27 899 AC 10/04 SC 0758 Furosemide 40 MG ONE ONE 10/03 1400 DC 10/03 PO 10/03 1401 1426 Guaifenesin 10 ML Q4P PRN 09/26 2145 AC PO Ipratropium [place] 2.5 ML TID 10/01 2100 AC 10/03 INH 194 Lisinopril 40 MG DAILY 10/02 899 AC 10/04 PO 0800 Magnesium Oxide 400 MG BID 09/26 2345 AC 10/04 PO 0800 Prednisone 50 MG DAILY 10/02 899 AC 10/04 PO 0800 Assessment/Plan Assessment: Patient is a 59-year-old male with a PMH significant for HTN, asthma, COPD, significant smoking history who presented complaining of lower extremity swelling and shortness of breath. #Acute hypoxic respiratory failure Likely multifactorial with asthma/COPD exacerbation and decompensated heart failure. Fluid overload continues to improve with diuresis. Patient continues to have wheezing on examination however this is improving. Will likely need supplemental O2 as an outpatient. The spirometry showed severe COPD with FEV1/ FVC ration being 0.37. -patiented desaturated to 87% when attempted to titrate O2 down to 1L -We will convert to p.o. Lasix tomorrow -Continue TRC/nebs -Taper supplemental O2 as tolerated, down to 3 L today, will continue to taper as tolerated -Started on prednisone 50 mg daily, will taper in the coming days -Started on ipratropium and albuterol inhaler 3 times a day #Hypertension -continue Lisinopril 40 mg daily -continue amlodipine 10 mg daily -carvedilol increased to 6.25 mg twice daily given persistently elevated BP social work saw the patient today and is getting him indigent medications and working on getting insurance coverage. Diet: Heart healthy DVT prophylaxis: Lovenox, Alps CODE STATUS: Full code Problem List: 1. Troponin level elevated 2. COPD (chronic obstructive pulmonary disease) 3. Hypoxia Pain Ratin Pain Location: none Pain Goal: Remain pain free Pain Plan: pain pathway Tomorrow's Labs & Rationales: none Jami Rasmussen MD 10/04/17 1202: Attending MD Review Statement Attending Statement Attending MD Statement: examined this patient, discuss w/resident/PA/ROAD PASSENGER FIRER, agreed w/resident/PA/ROAD PASSENGER FIRER, reviewed EMR data (avail) Attending Assessment/Plan: 62M PMH HTN, HLD, COPD admitted with a month of exertional dyspnea now with shortness of breath at rest, found to be fluid overloaded with weakly positive troponin, started on Lasix and Solumedrol overnight with significant diuresis and clinical improvement. Edema is resolved. Remains hypoxic requiring 2L NC. Asymptomatic. 1. Acute on chronic systolic CHF 2. Dyspnea at rest 3. Type 2 myocardial infarction Plan - Stable for discharge home - Prednisone taper - Outpatient cardiology follow up - Continue home medications - 2L NC oxygen on discharge - Social work consult for medications and oxygen upon discharge
[2017-10-04] MEDS ORDERED: CARVEDILOL6.25 M1 PO ×3 (11:36→14:28)
--- NOTE | 2017-10-04 11:40 | Patient Discharge Instructions ---
Discharge Instructions General Discharge Information You were seen/treated for: Decompensated systolic heart failure Severe COPD Special Instructions: Follow-up with your primary care physician within 1 week of discharge. Follow-up with your warranty clerk, Dr. Rousseau, within 1 week of discharge. Follow-up with Dr. Moreno, general accounting clerk, within 1 week of discharge to establish pulmonary care. Take all medications as directed. He will be sent home on supplemental oxygen, it is extremely important to not smoke, not be around people who are actively smoking, and avoid any open flames. Call your doctor or return to the ER if he should experience severe shortness of breath, chest pain, palpitations, loss of consciousness, lightheadedness. Acute Coronary Syndrome Inclusion Criteria At DC or during hospital stay patient has or had the following: ACS DIAGNOSIS No Discharge Core Measures Meds if any: Prescribed or Continued at Discharge Meds if any: NOT Prescribed or Continued at Discharge Congestive Heart Failure Inclusion Criteria At DC or during hospital stay patient has or had the following: CHF DIAGNOSIS Yes Discharge Core Measures Meds if any: Prescribed or Continued at Discharge ANGELA/ARB for EF <40% Yes Meds if any: NOT Prescribed or Continued at Discharge Cerebrovascular accident Inclusion Criteria At DC or during hospital stay patient has or had the following: CVA/TIA Diagnosis No Discharge Core Measures Meds if any: Prescribed or Continued at Discharge Meds if any: NOT Prescribed or Continued at Discharge Venous thromboembolism Inclusion Criteria VTE Diagnosis No VTE Type NONE VTE Confirmed by (Test) NONE Discharge Core Measures - Per Current guidelines, there needs to be overlap - treatment for the first 5 days of Warfarin therapy. - If discharged on Warfarin prior to 5 days of - overlap therapy, the patient will need to be - assessed for post discharge needs including - *Post discharge parental anticoagulation - *Warfarin and/or parental anticoagulation education - *Follow up date to check INR post discharge At least 5 days overlap therapy as Inpatient No Meds if any: Prescribed or Continued at Discharge Note: Overlap Therapy is Warfarin and Anticoagulant Meds if any: NOT Prescribed or Continued at Discharge
--- NOTE | 2017-10-04 13:48 | PN- Cardiology ---
Subjective Subjective: Clinically about the same. No new cardiac issues. Blood pressure slightly better today. Objective Vital Signs and I&Os Vital Signs Date Time Temp Pulse Resp B/P B/P Pulse O2 O2 Flow FiO2 Mean Ox Delivery Rate 10/04 0816 92 Nasal 2.0L Cannula 10/04 0847 92 Nasal 2.0L Cannula 10/04 0817 152/96 10/04 0800 152/92 10/04 0759 152/96 10/04 0724 97.5 82 18 158/100 94 Nasal 2.0L Cannula 10/04 0652 86 158/110 10/04 0231 174/100 10/03 2030 98.1 89 16 162/100 93 Nasal 2.0L Cannula 10/03 2028 93 Nasal 2.0L Cannula 10/04 2027 89 162/100 10/03 1949 93 Nasal 2.0L Cannula 10/03 1600 Nasal 3.0L Cannula 10/03 1512 98.4 87 20 140/92 91 Room Air Intake & Output 10/04 1600 10/04 0800 10/04 0000 10/03 1600 10/03 0800 10/03 0000 Intake Total 120 400 200 200 Output Total 1100 4150 141 9384 900 Balance -1100 -1680 -450 -1300 -700 Intake, Oral 120 400 200 200 Output, Urine 1100 9355 487 8004 900 Patient 201 lb 205 lb Weight Weight Bed scale Bed scale Measurement Method Physical Exam: General Appearance: well developed/nourished, alert, awake, oriented Head: normal HEENT: Normal Neck: supple, JVP normal, carotid upstrokes normal bilaterally, no masses or thyromegaly Respiratory: chest non-tender, clear to auscultation and percussion bilaterally Cardiovascular: regular rate/rhythm, normal S1, S2, 1-2/6 systolic murmur Abdomen: normal bowel sounds, soft, non-tender Extremities: normal inspection, no edema Vascular: Pulses are 2+ and equal bilaterally Neurologic: Grossly normal/nonfocal Current Medications: Current Medications Sig/Rene Start time Last Medication Dose Route Stop Time Status Admin Acetaminophen 650 MG Q6P PRN 09/26 2144 AC 10/01 PO 2219 Acetaminophen 1,000 MG Q6P PRN 09/26 214 AC IV Albuterol Sulfate 3 ML TID 09/29 1400 AC 10/04 INH 1308 Amlodipine Besylate 10 MG DAILY 10/01 899 AC 10/04 PO 0652 Aspirin 81 MG DAILY 09/27 09 AC 10/04 PO 0759 Atorvastatin Calcium 40 MG 1700 09/26 2200 AC 10/03 PO 1617 Carvedilol 6.25 MG BID 10/04 2100 AC PO Carvedilol 6.25 MG BID 10/04 899 DC PO Carvedilol 3.125 MG ONCE ONE 10/04 0815 DC 10/04 PO 10/04 0816 0817 Carvedilol 3.125 MG BID 10/02 2100 DC 10/04 PO 0759 Enoxaparin Sodium 40 MG DAILY 09/27 09 AC 10/04 SC 0758 Furosemide 40 MG ONE ONE 10/03 1400 DC 10/03 PO 10/03 1401 1426 Guaifenesin 10 ML Q4P PRN 09/26 2145 AC PO Ipratropium [place] 2.5 ML TID 10/01 2100 AC 10/04 INH 1308 Lisinopril 40 MG DAILY 10/02 899 AC 10/04 PO 0800 Magnesium Oxide 400 MG BID 09/26 2345 AC 10/04 PO 0800 Patient Medication 1 ED ONE ONE 10/04 1345 DC Teaching ED 10/04 1346 Prednisone 50 MG DAILY 10/02 899 AC 10/04 PO 0800 Results Last 48 Hrs of Labs/Mics: Laboratory Tests 10/03/17 0645: Anion Gap 6, Estimated GFR > 60, BUN/Creatinine Ratio 23.8, Magnesium 1.8 Assessment/Plan Assessment/Plan Assessment: 1. COPD exacerbation 2. Acute on chronic heart failure with reduced ejection fraction 3. Hypertension 4. Mild troponin elevation Plan: -Continue Lasix with monitoring of intakes, outputs, daily weights -Follow-up labs pending -Continue lisinopril 40 mg daily for now. Continue amlodipine. -Blood pressure slightly improved today, though still not optimal. Continue to monitor. Continue carvedilol at 6.25 mg twice daily -I discussed the possibility of the chest CT with the patient. If the medical team still desires a chest CT, the patient is now agreeable to performing it. -From a cardiac standpoint, the patient appears to be stable for discharge. Blood pressure can be managed further as outpatient. Continue telemetry? No
[2017-10-04] MEDS ORDERED: PROAIR HFA8.5 GM INH ×2 (14:22→14:28)
[2017-10-04] MEDS ORDERED: SPIRIVA18 MCG INH ×2 (14:25→14:28)
[2017-10-04 14:47] VITALS: BP 144/98
[2017-10-04] MEDS ORDERED: LASIX40 M1 PO (15:59)
--- NOTE | 2017-10-04 16:27 | Discharge Summary ---
Visit Information Visit Dates Admission Date: 09/26/17 Discharge Date: 10/04/2017 Hospital Course Course Attending Physician: Jami Rasmussen MD Primary Care Physician: Tess SHAFFER,[place] Hospital Course: 62-year-old gentleman former smoker with past medical history of hypertension, asthma, former smoker with [id number] history who has been noncompliant with medications and medical follow-up due to lack of insurance since the past 2-3 years admitted to [facility] for chief complaint of shortness of breath and bilateral lower extremity swelling. In the ED he was found to be hypoxic in the low to mid 80s and was started on BiPAP. Patient was hypertensive and was given labetalol 10 mg IV 1 along with nitroglycerin 1 g 1. Patient was given a dose of Lasix 40 mg IV, Solu-Medrol 125 mg IV 1 and aspirin 325 mg. Vitals on admission: afebrile, HR 90's, BP 184/110 --> 160/100 --> 174/96, sats 84% RA --> placed on Bipap and subsequently 93% on 4L. Labs on admission: macrocytic anemia, H/H 13.3/41.8, bicarb 38, Mag 1.5, LFT normal, troponin 0.11, proBNP 3050, thyroid functions normal, Utox positive for marijuana. AB.35/66/42/35. LE doppler: no DVT. CXR: Heart is enlarged, hilar vascular engorgement, right pleural effusion, right basilar atelectasis. EKG: sinus tachycardia, incomplete RBBB, LAFB, nonspecific T wave changes, Qtc 449. He was admitted to the telemetry floor and the following issues were addressed: Acute hypoxemic respiratory failure Likely multifactorial secondary to asthma/COPD exacerbation and decompensated heart failure. Fluid overload improved with diuresis. He continued to require supplemental O2 and we were unable to taper of his oxygen due to desaturation. Bedside spirometry FEV1/FVC was 37% consistent with severe COPD. His ambulatory sats were 87% on RA and 91% on 2LNC. At rest his saturation 89% on RA and 92% on 2L NC. Prednisone taper was also started. Upon discharge he will required home oxygen. Hypertension Cardiology was consulted. Blood pressure was controlled by starting him on Lisinopril 40 mg daily, amlodipine 10 mg daily and carvedilol increased to 6.25 mg twice daily given persistently elevated BP. Elevated troponin Trended up to 0.11 and was thought to be likely due to Type II demand ischemia Diet: Heart healthy DVT prophylaxis: Lisa Romo CODE STATUS: Full code Social work was called and arrangement was made to indigent medications for approx one month. Complications: none Allergies: Coded Allergies: Penicillins (Intermediate, HIVES 07/26/16) Sulfa (Sulfonamide Antibiotics) (Intermediate, FACIAL SWELLING 07/26/16) codeine (Intermediate, HIVES 07/26/16) Disposition Summary Disposition Principal Diagnosis: acute hypoxic respiratory failure Additional Diagnosis: decompensated heart failure Hypertension COPD Discharge Disposition: home or self care Discharge Instructions General Discharge Information Code Status: Full Code Patient's Diet: heart healthy Patient's Activity: as tolerated Follow-Up Instructions/Appts: Follow-up with casino manager, Dr. Rousseau, within 1 week of discharge. Follow-up with Dr. Moreno, cream separator operator, within 1 week of discharge to establish pulmonary care. Take all medications as directed. Will be sent home on supplemental oxygen, it is extremely important to not smoke , not be around people who are actively smoking, and avoid any open flames. Call your doctor or return to the ER if he should experience severe shortness of breath, chest pain, palpitations, loss of consciousness, lightheadedness. Medications at Discharge Discharge Medications: Stop taking the following medications: Aspirin (Ecotrin*) 325 MG TABLET. ORAL DAILY Lisinopril (Lisinopril) 20 MG TABLET ORAL DAILY Qty = 30 Amlodipine Besylate (Norvasc) 5 MG TABLET ORAL DAILY Qty = 30 Continue taking these medications: Multivitamin (Multi-Day Vitamins) 1 EACH TABLET 1 Tablet ORAL DAILY Comments: PER PT Start taking the following new medications: Aspirin (Aspirin*) 81 MG TAB.CHEW 81 Milligram ORAL DAILY Qty = 30 No Refills Comments: Last Taken:10/04/17 Time:0800 Lisinopril (Lisinopril) 20 MG TABLET 40 Milligram ORAL DAILY Qty = 30 No Refills Comments: Last Taken:10/04/17 Time:0800 Amlodipine Besylate (Norvasc) 10 MG TABLET 10 Milligram ORAL DAILY Qty = 30 No Refills Comments: Last Taken:10/04/17 Time:0800 Carvedilol (Carvedilol) 6.25 MG TABLET 6.25 Milligram ORAL TWICE DAILY Qty = 60 No Refills Atorvastatin Calcium (Atorvastatin Calcium) 40 MG TABLET 40 Milligram ORAL 5 PM Qty = 30 No Refills Comments: Last Taken:10/03/17 Time:1700 Albuterol Sulfate (Proair Hfa) 90 MCG HFA.AER.AD 2 Puff Inhale through mouth EVERY 4-6 HOURS NEEDED as needed for COPD Qty = 1 No Refills Instructions: . Tiotropium [place] (Spiriva) 18 MCG CAP.W.DEV 1 Capsule Inhale through mouth DAILY Qty = 30 No Refills Instructions: . Furosemide (Lasix) 40 MG TABLET 1 Tablet ORAL DAILY Qty = 30 No Refills Copies To: Tess SHAFFER,[place] Attending Review Statement Documenting Attending: Valery SHAFFER,Jami Other Findings: SERVICE DATE: 09/26/17 EXAM TYPE: CARD - ECHOCARDIOGRAM CONCLUSIONS 1. Aortic sclerosis is present with no valvular stenosis or insufficiency. 2. Mitral leaflet thickening is present with mild to moderate mitral insufficiency and mild to moderate left atrial enlargement. 3. A very small pericardial effusion is present. 4. The left ventricular chamber is moderately enlarged with eccentric hypertrophy, global hypokinesia which is worse in the inferoposterior segments and an ejection fraction of approximately 45%. 5. Mild tricuspid and pulmonic insufficiency are present with no evidence of pulmonary hypertension. 6. This was a technically difficult examination.
== END 2017-10-04 18:18 | DRG 133 ==
LOC: ERH 17:18 → 1NO 19:42 → ERHI 19:42 → 1NO 19:42 → ENRESERV 20:12 → ENTRNSPT 21:39 → EDTRNSPT 21:46 → EDTRNSPTSTS 21:46 → 1NO 21:53 → CMPTRNSPT 22:10 → 1NO 09-27 09:39 → ENPENDDIS 10-04 18:20 → ENTRNSPT 10-04 18:22 → EDTRNSPT 10-04 18:27 → EDTRNSPTSTS 10-04 18:27 → CMPTRNSPT 10-04 18:39
PROVIDERS: Dermatology; Internal Medicine Hematology & Oncology; Physician Assistant
PROC: 5A09357 Assistance with Respiratory Ventilation, Less than 24 Consecutive Hours, Continuous Positive Airway Pressure (ICD-10-PCS; principal; 2017-09-27)
DX: J96.01 Acute respiratory failure with hypoxia (principal); I11.0 Hypertensive heart disease with heart failure; J44.1 Chronic obstructive pulmonary disease with (acute) exacerbation; I24.8 Other forms of acute ischemic heart disease; F12.929 Cannabis use, unspecified with intoxication, unspecified; I50.23 Acute on chronic systolic (congestive) heart failure; E83.42 Hypomagnesemia; G47.33 Obstructive sleep apnea (adult) (pediatric); I16.0 Hypertensive urgency; Z91.14 Patient's other noncompliance with medication regimen; I50.9 Heart failure, unspecified; Z87.891 Personal history of nicotine dependence; Z77.22 Contact with and (suspected) exposure to environmental tobacco smoke (acute) (chronic); Z88.5 Allergy status to narcotic agent; Z88.0 Allergy status to penicillin; Z88.2 Allergy status to sulfonamides
CPT/HCPCS: 1NP; 1NSP; 36592; 71045; 71046; 80307; 82436; 87070; 87804; 87804-59; 93005; 93010; 93306; 93970; 94060-59; 96374; 96375; 99291; J0131; J1650; J1940; J2920; J2930; J3490; J7512